=== PATIENT | female | born 1975 | race Caucasian/White ===

== ENCOUNTER 2021-01-09 15:10 | Outpatient (REF) | payer OTHER, SELFPAY ==
[2021-01-09 16:26] LABS: MANUAL DIFF FLAG NO
[2021-01-09 16:31] LABS: Basophils Percent Auto 0.5 % (0-2); Eosinophils Absolute Auto 0.1 X10*3/uL (0.0-0.4); Hematocrit 37.6 % (37-47); Hemoglobin 12.4 g/dl (12.0-16.0); Imm Gran Abs Auto 0.01 X10*3/uL (0.00-0.03); Imm Gran Pct Auto 0.2 % (0.0-0.4); Lymphocytes Absolute Auto 2.1 X10*3/uL (1.2-4.9); Lymphocytes Percent Auto 33.3 % (20-40); Mean Corpuscular Hemoglobin 29.9 pg (27.0-33.0); Mean Corpuscular Volume 90.6 fL (80-98); Mean Platelet Volume 10.9 fL (9.4-12.3); Monocytes Absolute Auto 0.4 X10*3/uL (0.1-1.2); Monocytes Percent Auto 6.3 % (2-11); Neutrophils Absolute Auto 3.7 X10*3/uL (2.0-8.3); Neutrophils Percent Auto 58.7 % (45-73); Platelet Count 276 X10*3/uL (160-400); Red Blood Count 4.15 X10*6/uL (4.20-5.50); Red Cell Distribution Width 12.2 % (11.0-16.0); White Blood Count 6.2 X10*3/uL (4.8-10.8)
[2021-01-09 17:03] LABS: Alanine Aminotransferase 20 U/L (0-31); Albumin Level 4.5 g/dL (3.5-5.0); Alkaline Phosphatase 67 U/L (39-117); Anion Gap 10 (12-20); Aspartate Amino Transferase 19 U/L (5-31); Bilirubin Total 0.6 mg/dL (0.0-1.0); Blood Urea Nitrogen 13 mg/dL (9-16); Calcium 9.7 mg/dL (8.4-10.2); Carbon Dioxide 30 mmol/L (22-29); Chloride 104 mmol/L (96-108); Estimated Glomerular Filt Rate > 60; Glucose Random 79 mg/dL (60-115); Potassium 3.5 mmol/L (3.3-5.1); Sodium 140 mmol/L (135-145); Total Protein 7.5 g/dL (6.5-8.0)
== END 2021-01-09 15:11 | disposition home or self-care (01) ==
LOC: HO.HMGCLDS 15:10
PROVIDERS: PCP Internal Medicine; Visit Provider Internal Medicine
DX: I10 Essential (primary) hypertension (principal); F33.9 Major depressive disorder, recurrent, unspecified; F41.1 Generalized anxiety disorder; G47.9 Sleep disorder, unspecified
CPT/HCPCS: 36415; 80053; 85025

== ENCOUNTER → 2021-02-12 07:58 | Outpatient (BNVA) | payer OTHER, SELFPAY | PROVIDERS: PCP Internal Medicine; Visit Provider Physician Assistant ==

== ENCOUNTER 2021-03-19 14:08 | Day surgery (SDC) | payer OTHER, SELFPAY ==
[2021-03-19] VITALS (7 sets, daily range): BP systolic 128–163; BP diastolic 80–98; PULSE 60–79; RESP 16–18; TEMP 36.3–36.9; O2SAT 97–100; BMI 28.2
--- NOTE | 2021-03-19 14:49 | MHC.SHP ---
Pre-Procedural Eval Section B Chief Complaint: digestive system Relevant Family History (Specify if Yes): No Relevant Social History: Tobacco Use Present Medications: see Short Stay Collaborative assessment Medical History: Significant History (Anxiety, generalized Blood in urine Change in bowel function Depression, major, recurrent Difficulty sleeping Herpes simplex antibody positive Hypertension, essential IBS (irritable bowel syndrome)) History of Previous Operations: Relevant previous surgery/procedure and date(s) (tubal ligation) Allergies: Allergies Allergy/AdvReac Type Severity Reaction Status Date / Time Sulfa (Sulfonamide Allergy Unknown Anaphylaxis Verified 01/09/21 14:41 Antibiotics) /hives [SULFA (SULFONAMIDE ANTIBIOTICS)] Review of Systems Sugical H&P ROS: Negative: Constitution, Cardiovascular, Respiratory, Neurological, Psychiatric, Hem-Onc, Allergic/Immunologic, Gastrointestinal, Genitourinary, Musculoskeletal, Integumentary, Endocrine and Eyes/Ears/Nose/Throat Exam Surgical H&P Exam: Normal: HEENT, Normal: Heart, Normal: Lungs, Normal: Extremities, Normal: Abdomen, Normal: Skin and Normal: Neurological Plan Diagnosis/Plan: Unchanged I have reviewed the history and physical and performed a pertinent physical examination on my patient. No changes have occurred unless specified.
--- NOTE | 2021-03-19 14:51 | PM.OP ---
Brief Operative Note Date of Service: 03/19/21 Pre-op diagnosis: altered bowel habit Post-op diagnosis: same Procedure: see op note Surgeon: Ana María Sifuentes MD Anesthesia: MAC Was an Infantry Senior Sergeant used for this Procedure?: No Estimated blood loss (mL): 0 Condition: stable Disposition: PACU
--- NOTE | 2021-03-19 14:51 | W.PM.OPN ---
Operative Note Operative Note Date of Service: 03/19/21 Narrative: Operative Information Procedure Description: Colonoscopy COLONOSCOPY Instrument: Olympus variable stiffness pediatric scope 190L Colonoscopy Monitoring: Vital signs and clinical assessment, continuous EKG monitoring, Pulse oximetry, Carbon Dioxide monitoring and blood pressure monitoring were done throughout the procedure. Colon withdrawal time was 12 minutes. Procedure: The patient was placed in the left lateral decubitis position and pre-procedure medications were administered. After a digital rectal examination of the ano-rectum, the video colonoscope was inserted into the rectum and advanced through the colon to the cecum/TI. The colonoscope was slowly withdrawn in a retrograde panoramic fashion and the colon mucosa was carefully examined including a retroflexed view of the rectum. Findings and interventions are described below. Procedure Difficulty:easy Findings: Terminal Ileum-normal Cecum:normal Ascending Colon: normal Transverse Colon -normal Descending Colon: 10-12 mm flat polyp with sessile edges, raised with orise and then removed with cold snare Sigmoid Colon: x 2 sessile polyps 5-7 mm removed with forceps Rectum: Retroflexion with small internal hemorrhoids, grade I Anorectum - normal Colon preparation: [place] Bowel Preparation Scale Right colon; 3 Transverse colon: 3 Left colon; 3 (0 = Unprepared colon segment with mucosa not seen due to solid stool that cannot be cleared. 1 = Portion of mucosa of the colon segment seen, but other areas of the colon segment not well seen due to staining, residual stool and/or opaque liquid. 2 = Minor amount of residual staining, small fragments of stool and/or opaque liquid, but mucosa of colon segment seen well. 3 = Entire mucosa of colon segment seen well with no residual staining, small fragments of stool or opaque liquid) Impression and Post Procedure Diagnosis: internal hemorrhoids polyps Plan: High fiber diet leaflet Avoid straining at stool, epsom salts and sitz bath, anusol supps or cream as needed Repeat Colonoscopy in 5 years or earlier if clinically indicated Above findings were reviewed with the patient and relevant handouts were provided if indicated.
== END 2021-03-19 16:43 | disposition home or self-care (01) ==
PROVIDERS: PCP Internal Medicine; Visit Provider Internal Medicine Gastroenterology
PROC: 0DJD8ZZ Inspection of Lower Intestinal Tract, Via Natural or Artificial Opening Endoscopic (ICD-10-PCS; CPT 45378; principal; 2021-03-19 16:20)
DX: R19.4 Change in bowel habit (principal); K63.5 Polyp of colon; K64.0 First degree hemorrhoids; K58.9 Irritable bowel syndrome, unspecified; I10 Essential (primary) hypertension; F32.9 Major depressive disorder, single episode, unspecified; B00.82 Herpes simplex myelitis; F17.210 Nicotine dependence, cigarettes, uncomplicated; Z79.899 Other long term (current) drug therapy; Z88.2 Allergy status to sulfonamides
CPT/HCPCS: 45385; 45380; 45381; 88305

== ENCOUNTER 2022-01-29 07:07 | Outpatient (REF) | payer OTHER, SELFPAY ==
[2022-01-29 11:27] LABS: MANUAL DIFF FLAG NO
[2022-01-29 11:31] LABS: Basophils Percent Auto 0.8 % (0-2); Eosinophils Absolute Auto 0.3 X10*3/uL (0.0-0.4); Eosinophils Percent Auto 5.8 % (0-4); Hematocrit 38.1 % (37.0-47.0); Hemoglobin 12.4 g/dl (12.0-16.0); Imm Gran Abs Auto 0.02 X10*3/uL (0.00-0.03); Imm Gran Pct Auto 0.4 % (0.0-0.4); Lymphocytes Absolute Auto 1.8 X10*3/uL (1.2-4.9); Lymphocytes Percent Auto 34.4 % (20-40); Mean Corpuscular HGB Conc 32.5 g/dl (31.0-35.0); Mean Corpuscular Hemoglobin 29.5 pg (27.0-33.0); Mean Corpuscular Volume 90.5 fL (80.0-98.0); Mean Platelet Volume 11.3 fL (9.4-12.3); Monocytes Absolute Auto 0.4 X10*3/uL (0.1-1.2); Monocytes Percent Auto 6.8 % (2-11); Neutrophils Absolute Auto 2.7 x10*3/uL (2.0-8.3); Neutrophils Percent Auto 51.8 % (45-73); Platelet Count 234 X10*3/uL (160-400); Red Blood Count 4.21 X10*6/uL (4.20-5.50); Red Cell Distribution Width 12.5 % (11.0-16.0); White Blood Count 5.1 X10*3/uL (4.8-10.8)
[2022-01-29 11:57] LABS: Alanine Aminotransferase 21 U/L (0-31); Albumin Level 4.1 g/dL (3.5-5.0); Alkaline Phosphatase 60 U/L (39-117); Anion Gap 12 (12-20); Aspartate Amino Transferase 20 U/L (5-31); Bilirubin Total 0.4 mg/dL (0.0-1.0); Blood Urea Nitrogen 20 mg/dL (9-16); Calcium 10.2 mg/dL (8.4-10.2); Carbon Dioxide 26 mmol/L (22-29); Chloride 106 mmol/L (96-108); Cholesterol 187 mg/dL; Estimated Glomerular Filt Rate > 60; Glucose Fasting 97 mg/dL (60-99); HDL Cholesterol 51 mg/dL; LDL Cholesterol Calculated 121 mg/dl; Potassium 4.2 mmol/L (3.3-5.1); Sodium 140 mmol/L (135-145); Total Protein 7.2 g/dL (6.5-8.0); Triglycerides 78 mg/dL
[2022-01-29 12:03] LABS: TSH reflex Free T4 1.33 uIU/mL (0.32-4.0)
[2022-01-31 09:11] LABS: Follicle Stimulating Hormone 24.5 mIU/mL; Lutenizing Hormone 23.5 mIU/mL
== END 2022-01-29 07:08 | disposition home or self-care (01) ==
LOC: HO.HMGCLDS 07:07
PROVIDERS: Visit Provider Internal Medicine
DX: F33.9 Major depressive disorder, recurrent, unspecified (principal); F41.1 Generalized anxiety disorder; I10 Essential (primary) hypertension; K58.9 Irritable bowel syndrome, unspecified; N93.8 Other specified abnormal uterine and vaginal bleeding; R23.2 Flushing
CPT/HCPCS: 36415; 80053; 80061; 83001; 83002; 84443; 85025

== ENCOUNTER 2022-07-30 14:20 | Outpatient (REF) | payer OTHER, SELFPAY ==
[2022-07-30 16:36] LABS: MANUAL DIFF FLAG NO
[2022-07-30 16:41] LABS: Basophils Percent Auto 0.6 % (0-2); Eosinophils Absolute Auto 0.2 X10*3/uL (0.0-0.4); Eosinophils Percent Auto 3.7 % (0-4); Hematocrit 36.1 % (37.0-47.0); Hemoglobin 12.2 g/dl (12.0-16.0); Imm Gran Abs Auto 0.02 X10*3/uL (0.00-0.03); Imm Gran Pct Auto 0.3 % (0.0-0.4); Lymphocytes Absolute Auto 2.2 X10*3/uL (1.2-4.9); Lymphocytes Percent Auto 35.3 % (20-40); Mean Corpuscular HGB Conc 33.8 g/dl (31.0-35.0); Mean Corpuscular Hemoglobin 30.4 pg (27.0-33.0); Mean Platelet Volume 11.5 fL (9.4-12.3); Monocytes Absolute Auto 0.6 X10*3/uL (0.1-1.2); Monocytes Percent Auto 8.9 % (2-11); Neutrophils Absolute Auto 3.2 x10*3/uL (2.0-8.3); Neutrophils Percent Auto 51.2 % (45-73); Platelet Count 256 X10*3/uL (160-400); Red Blood Count 4.01 X10*6/uL (4.20-5.50); Red Cell Distribution Width 12.7 % (11.0-16.0); White Blood Count 6.2 X10*3/uL (4.8-10.8)
[2022-07-30 16:56] LABS: Alanine Aminotransferase 24 U/L (0-31); Albumin Level 4.3 g/dL (3.5-5.0); Alkaline Phosphatase 64 U/L (39-117); Anion Gap 14 (12-20); Aspartate Amino Transferase 23 U/L (5-31); Bilirubin Total 0.3 mg/dL (0.0-1.0); Blood Urea Nitrogen 17 mg/dL (9-16); Calcium 10.2 mg/dL (8.4-10.2); Carbon Dioxide 26 mmol/L (22-29); Chloride 104 mmol/L (96-108); Estimated Glomerular Filt Rate > 60; Glucose Random 87 mg/dL (60-115); Potassium 4.2 mmol/L (3.3-5.1); Sodium 140 mmol/L (135-145); Total Protein 7.4 g/dL (6.5-8.0)
== END 2022-07-30 14:21 | disposition home or self-care (01) ==
LOC: HO.HMGCLDS 14:20
PROVIDERS: PCP Internal Medicine; Visit Provider Internal Medicine
DX: F33.9 Major depressive disorder, recurrent, unspecified (principal); F41.1 Generalized anxiety disorder; I10 Essential (primary) hypertension; K58.9 Irritable bowel syndrome, unspecified; G47.9 Sleep disorder, unspecified
CPT/HCPCS: 36415; 80053; 85025

== ENCOUNTER 2023-04-22 14:38 | Outpatient (AMB) | payer OTHER, SELFPAY ==
--- NOTE | 2023-04-22 14:41 | A.OFFPC_ITS ---
Vital Signs 04/22/23 14:45 Height 5 ft 6 in Weight 185 lb BMI 29.9 BP 132/90 H Blood Pressure Location Lt brachial Position Sitting Pulse 60 Pulse Source Pulse Oximeter Pulse Oximetry (%) 98 Oxygen Delivery Method Room Air Intake Visit Reasons: Annual PE Allergies Sulfa (Sulfonamide Antibiotics) [SULFA (SULFONAMIDE ANTIBIOTICS)] Allergy (Unknown, Verified 04/22/23 14:43) Anaphylaxis/hives Medication List - Last Reconciled 04/22/23 by Rox Novak MD atenolol 50 mg PO DAILY 90 days bupropion HCl (Wellbutrin XL) 300 mg PO QAM 90 days buspirone 10 mg (2 x 5 mg) PO BID PRN 90 days dicyclomine 10 mg PO TID losartan 50 mg PO DAILY 90 days quetiapine 100 mg PO BEDTIME 90 days venlafaxine ER 37.5 mg PO DAILY 90 days Tobacco use date assessed: 04/22/23 Dental Screening Dental Screen Date: 04/22/23 Did you have a dental visit in the last 12 months?: No Was dental information given to patient?: Yes HPI Annual PE HPI Details Patient is a 47-year-old female came in today for her annual physical exam Due for labs Due for mammogram Due for OBGYN visit Hypertension: Patient's blood pressure stable, she is taking atenolol 50 mg and losartan 50 mg, tolerating medication.? Major depression: Patient is on Seroquel 100 mg at night which also helps her sleep Patient is also on venlafaxine 37.5 mg.? And Wellbutrin 300 mg.? Anxiety is stable with buspirone 10 mg up b.i.d. IBS stable with dicyclomine Follow-up 3 months [facility] Medical History Anxiety, generalized Blood in urine Change in bowel function Depression, major, recurrent Difficulty sleeping Herpes simplex antibody positive Hypertension, essential IBS (irritable bowel syndrome) Surgical History History of tubal ligation Family History Father CAD (coronary artery disease) High cholesterol Mother HTN (hypertension) Depression Paternal Grandfather Cancer of prostate Other Mental health disorder Social History Household Members: Children Housing: Condominium Alcohol intake: current Alcohol intake frequency: a few times a month Patient Tobacco Use Status: Current everyday Tobacco user Tobacco use type: Cigarette Cigarettes Per Day: 3 e-Cigarette/Vaping Use: Never Used service: No Current occupational status: employed Current occupation: [employer] High Cognitive needs: No Hearing needs: No Vision needs: No Questionnaire PHQ-9 Over the last 2 weeks, how often have you been bothered by any of the following problems? 1. Little interest or pleasure in doing things: several days 2. Feeling down, depressed, or hopeless: several days 3. Trouble falling or staying asleep, or sleeping too much: not at all 4. Feeling tired or having little energy: several days 5. Poor appetite or overeating: not at all 6. Feeling bad about yourself - or that you are a failure or have let yourself or your family down: several days 7. Trouble concentrating on things, such as reading the newspaper or watching television: not at all 8. Moving or speaking so slowly that other people could have noticed. Or the opposite - being so fidgety or restless that you have been moving around a lot more than usual: not at all 9. Thoughts that you would be better off or of hurting yourself in some way: not at all Total score: 4 Source: Developed by Drs. Chance Gillespie, Neena Archer, Cuauhtemoc Brambila and colleagues, with an educational ozzie from [employer]. Thrive Questionnaire Date Thrive assessed: 04/22/23 I am a: Patient What is your living situation today?: I have a steady place to live Within the past 12 months, did the food you bought not last and you didn't have the money to get more?: Never true Within the past 12 months, did you worry whether your food would run out before you got money to buy more?: Never true Do you have trouble paying for medicines?: No Do you have trouble getting transportation to medical appointments?: No Do you have trouble paying your heating and electricity bill?: No Do you have trouble taking care of your child, family member or friend?: No Do you have trouble with day-to-day activities such as bathing, preparing meals, shopping, managing finances, etc.?: No Are you currently unemployed and looking for a job?: No Are you interested in more education?: No AUDIT C Alcohol Use Questionnaire (AUDIT-C) 1. How often do you have a drink containing alcohol?: Monthly or less 2. How many drinks containing alcohol do you have on a typical day when you are drinking?: 1 or 2 3. How often do you have six or more drinks on one occasion?: Never Total Score: 1 MARIA DEL CARMEN-7 AMB Questionnaire MARIA DEL CARMEN-7 Date MARIA DEL CARMEN - 7 assessed: 04/22/23 Feeling nervous, anxious, or on edge: 0 = Not at all Not being able to stop or control worryin = Not at all Worrying too much about different things: 0 = Not at all Trouble relaxin = Not at all Being so restless that it is hard to sit still: 0 = Not at all Becoming easily annoyed or irritable: 0 = Not at all Feeling afraid as if something awful might happen: 0 = Not at all Total MARIA DEL CARMEN-7 score (0-4 normal; 5-9 mild; 10-14 moderate; 15-21 severe): 0 Source: Developed by Drs. Chance Gillespie, Neena Archer, Cuauhtemoc Brambila and colleagues, with an educational ozzie from [employer]. Review of Systems Const Denies chills, Denies fever(s) and Denies headache(s) Eyes Denies blurry vision ENT Denies headache(s), Denies nasal discharge, Denies nasal obstruction, Denies odynophagia and Denies sinus pain Card Denies chest pain at rest and Denies chest pain with activity Resp Denies cough and Denies hemoptysis GI Denies odynophagia, Denies vomiting and Denies hematemesis Reports as per HPI Musc Denies abnormal gait Skin/Breast Reports as per HPI Neuro Denies Neuro-related abnormal movements, Denies Abnormal speech present, Denies abnormal gait, Denies headache(s) and Denies Sensory deficit (Neuro) Psych Denies mood swings and Denies paranoia Endo Reports as per HPI Jesse/Lymph Reports as per HPI Aller/Immun Reports as per HPI Physical exam (Primary Care) Vital Signs: Last Vital Signs Pulse 60 04/22/23 14:45 BP 132/90 H 04/22/23 14:45 Pulse Ox 98 04/22/23 14:45 Oxygen Delivery Method Room Air 04/22/23 14:45 BMI result Body Mass Index 29.9 Tobacco/Smoking Status: Tobacco use Status Tobacco use date assessed 04/22/23 04/22/23 14:44 Patient Tobacco Use Status Current everyday Tobacco 04/22/23 14:42 Tobacco use type Cigarette 04/22/23 14:42 e-Cigarette/Vaping Use Never Used 04/22/23 14:42 PHQ-9: PHQ-9 Score PHQ-9: Total score 4 04/22/23 14:48 Thrive Assessment: Date of Thrive Assessment Date Thrive assessed 04/22/23 04/22/23 14:48 Const General: cooperative, comfortable and no acute distress Orientation/consciousness: patient oriented x3 HENMT Head: Yes normocephalic and Yes atraumatic Eyes General: appearance normal, both eyes and all related structures Pupils: Equal, round and reactive pupils present EOM: EOMs intact bilaterally Neck Neck: Yes supple and No lymphadenopathy Thyroid: Thyroid normal Lymphatic: no lymphadenopathy noted Chest Breast/axilla palpation: normal palpation of the breasts Resp Effort & Inspection: normal respiratory effort and able to speak in complete sentences Auscultation: clear to auscultation bilaterally Cardio Heart sounds: S1 normal heart sound present and S2 normal heart sound present GI Palpation (GI): Soft to palpation and nontender Auscultation: normal bowel sounds General: Yes no CVA tenderness Back/Spine/Pelvis Back: no CVA tenderness Skin General skin exam: elasticity normal and turgor normal Neuro General: patient oriented x3 and gait normal Cranial nerves: Yes Equal, round and reactive pupils present Speech: No Abnormal speech present Sensory Exam: No Sensory deficit (Neuro) Coordination: tandem gait normal and Romberg test negative Extrem General: Yes normal exam except as noted and No edema Assessment and Plan Assessment & Plan (1) Encounter for general adult medical examination with abnormal findings: Code(s): Z00.01 - Encounter for general adult medical examination with abnormal findings (2) Depression, major, recurrent: Code(s): F33.9 - Major depressive disorder, recurrent, unspecified (3) Anxiety, generalized: Code(s): F41.1 - Generalized anxiety disorder (4) Hypertension, essential: Code(s): I10 - Essential (primary) hypertension (5) Difficulty sleeping: Code(s): G47.9 - Sleep disorder, unspecified (6) IBS (irritable bowel syndrome): Comment: FODMAP-and reduce anxiety Dicyclomine 10 mg may increase to t.i.d. Food diary Code(s): K58.9 - Irritable bowel syndrome without diarrhea Plan Patient is a 47-year-old female came in today for her annual physical exam Due for labs Due for mammogram Due for OBGYN visit Hypertension: Patient's blood pressure stable, she is taking atenolol 50 mg and losartan 50 mg, tolerating medication.? Major depression: Patient is on Seroquel 100 mg at night which also helps her sleep Patient is also on venlafaxine 37.5 mg.? And Wellbutrin 300 mg.? Anxiety is stable with buspirone 10 mg up b.i.d. IBS stable with dicyclomine Follow-up 3 months Orders: Orders Comprehensive Met. Panel Today F33.9 - Major depressive disorder, recurrent, unspecified, F41.1 - Generalized anxiety disorder, G47.9 - Sleep disorder, unspecified, I10 - Essential (primary) hypertension, Z00.01 - Encounter for general adult medical examination with abnormal findings Complete Blood Count Auto Diff Today F33.9 - Major depressive disorder, recurrent, unspecified, F41.1 - Generalized anxiety disorder, G47.9 - Sleep disorder, unspecified, I10 - Essential (primary) hypertension, Z00.01 - Encounter for general adult medical examination with abnormal findings MM tomosynthesis screening BI Today Z12.31 - Encounter for screening mammogram for malignant neoplasm of breast 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
[2023-04-22 14:45] VITALS: BP 132/90; PULSE 60; O2SAT 98; BMI 29.9
== END 2023-04-22 15:08 | disposition home or self-care (01) ==
PROVIDERS: Visit Provider Internal Medicine
DX: Z00.01 Encounter for general adult medical examination with abnormal findings (principal); F33.9 Major depressive disorder, recurrent, unspecified; I10 Essential (primary) hypertension; K58.9 Irritable bowel syndrome, unspecified; F41.1 Generalized anxiety disorder; G47.9 Sleep disorder, unspecified
CPT/HCPCS: 99396

== ENCOUNTER 2023-05-09 09:24 | Outpatient (AMB) | payer OTHER, SELFPAY ==
--- NOTE | 2023-05-09 09:25 | MHC.OFFWIV ---
Intake Vital Signs 05/09/23 09:29 BP 130/96 H Blood Pressure Location Lt brachial Position Sitting Pulse 88 Pulse Source Pulse Oximeter Temp 97.2 F Temp Source Temporal Artery Scan Pulse Oximetry (%) 98 Oxygen Delivery Method Room Air Intake Visit Reasons: EP, Right eye redness, swelling Intake Note: Patient here for right eye redness and swelling that has been present since Tuesday, she has been having discharge since then. Patient Tobacco Use Status: Current everyday Tobacco user Allergies Sulfa (Sulfonamide Antibiotics) [SULFA (SULFONAMIDE ANTIBIOTICS)] Allergy (Unknown, Verified 05/09/23 09:53) Anaphylaxis/hives Medication List - Last Reconciled 05/09/23 by Vega Morales MD atenolol 50 mg PO DAILY 90 days azithromycin take 500 mg today (day 1), then 250 mg for 4 days (days 2-5) PO bupropion HCl (Wellbutrin XL) 300 mg PO QAM 90 days buspirone 10 mg (2 x 5 mg) PO BID PRN 90 days dicyclomine 10 mg PO TID erythromycin 0.5 inches ophthalmic (eye) TID losartan 50 mg PO DAILY 90 days quetiapine 100 mg PO BEDTIME 90 days venlafaxine ER 37.5 mg PO DAILY 90 days Do you need a note to return to daycare/school/sports/work: Yes HPI EP, Right eye redness, swelling HPI Details 47-year-old female presents to the office for a sick visit. Patient is reporting symptoms of right ear pain and sore throat for the past few days. In addition she woke up with right eye pain. Increased tearing. Does not wear contact lenses. Mucoid discharge in the morning. [facility] Medical History Anxiety, generalized Blood in urine Change in bowel function Depression, major, recurrent Difficulty sleeping Herpes simplex antibody positive Hypertension, essential IBS (irritable bowel syndrome) Surgical History History of tubal ligation Family History Father CAD (coronary artery disease) High cholesterol Mother HTN (hypertension) Depression Paternal Grandfather Cancer of prostate Other Mental health disorder Social History Household Members: Children Housing: Condominium Alcohol intake: current Alcohol intake frequency: a few times a month Patient Tobacco Use Status: Current everyday Tobacco user Tobacco use type: Cigarette Cigarettes Per Day: 3 e-Cigarette/Vaping Use: Never Used service: No Current occupational status: employed Current occupation: [employer] High Cognitive needs: No Hearing needs: No Vision needs: No Physical Exam Vital Signs: Last Vital Signs Temp 97.2 F 05/09/23 09:29 Pulse 88 05/09/23 09:29 BP 130/96 H 05/09/23 09:29 Pulse Ox 98 05/09/23 09:29 Oxygen Delivery Method Room Air 05/09/23 09:29 Const General: cooperative and healthy appearing Nutritional Appearance: well nourished Orientation/consciousness: patient oriented x3 Limitations: no limitations HEENT Head: Yes normal to inspection Eyes Other: Right eye: Tearing, bulbar conjunctiva is congested. Corneas clear. No digital tenderness. General: appearance normal, both eyes and all related structures Neck Neck: Yes normal visual inspection Chest Chest palpation & inspection: normal palpation of entire chest wall Resp Effort & Inspection: normal respiratory effort Neuro General: patient oriented x3 Assessment & Plan Assessment & Plan (1) Conjunctivitis: Code(s): H10.9 - Unspecified conjunctivitis Plan: Erythromycins ointment called in. If symptoms do not improve to follow-up here. (2) Upper respiratory tract infection: Code(s): J06.9 - Acute upper respiratory infection, unspecified Plan: Antibiotics ordered. Increase fluid intake. Tylenol for aches and pains. If symptoms worsen, follow-up here for a recheck. Medications: New azithromycin take 500 mg today (day 1), then 250 mg for 4 days (days 2-5) PO 6 tabs 0RF erythromycin 0.5 inches ophthalmic (eye) TID 1 g 0RF Coding Level of Care Code Est Pt Level 4 (44868) Diagnoses Conjunctivitis H10.9 Upper respiratory tract infection J06.9
[2023-05-09 09:29] VITALS: BP 130/96; PULSE 88; TEMP 36.2; O2SAT 98
== END 2023-05-09 09:57 | disposition home or self-care (01) ==
PROVIDERS: PCP Internal Medicine; Visit Provider Internal Medicine
DX: H10.9 Unspecified conjunctivitis (principal); J06.9 Acute upper respiratory infection, unspecified
CPT/HCPCS: 99214

== ENCOUNTER 2023-05-09 10:00 | Outpatient (REF) | payer OTHER, SELFPAY ==
[2023-05-09 13:42] LABS: MANUAL DIFF FLAG NO
[2023-05-09 13:56] LABS: Basophils Percent Auto 0.7 % (0-2); Eosinophils Absolute Auto 0.2 X10*3/uL (0.0-0.4); Eosinophils Percent Auto 2.7 % (0-4); Hematocrit 41.1 % (37.0-47.0); Hemoglobin 13.4 g/dl (12.0-16.0); Imm Gran Abs Auto 0.02 X10*3/uL (0.00-0.03); Imm Gran Pct Auto 0.4 % (0.0-0.4); Lymphocytes Absolute Auto 1.6 X10*3/uL (1.2-4.9); Lymphocytes Percent Auto 28.8 % (20-40); Mean Corpuscular HGB Conc 32.6 g/dl (31.0-35.0); Mean Corpuscular Hemoglobin 29.8 pg (27.0-33.0); Mean Corpuscular Volume 91.3 fL (80.0-98.0); Mean Platelet Volume 11.5 fL (9.4-12.3); Monocytes Absolute Auto 0.4 X10*3/uL (0.1-1.2); Monocytes Percent Auto 7.6 % (2-11); Neutrophils Absolute Auto 3.4 x10*3/uL (2.0-8.3); Neutrophils Percent Auto 59.8 % (45-73); Platelet Count 283 X10*3/uL (160-400); Red Cell Distribution Width 12.2 % (11.0-16.0); White Blood Count 5.6 X10*3/uL (4.8-10.8)
[2023-05-09 14:26] LABS: Alanine Aminotransferase 36 U/L (0-31); Albumin Level 4.1 g/dL (3.5-5.0); Alkaline Phosphatase 79 U/L (39-117); Anion Gap 15 (12-20); Aspartate Amino Transferase 34 U/L (5-31); Bilirubin Total 0.3 mg/dL (0.0-1.0); Blood Urea Nitrogen 11 mg/dL (9-16); Calcium 10.5 mg/dL (8.4-10.2); Carbon Dioxide 25 mmol/L (22-29); Chloride 106 mmol/L (96-108); Estimated Glomerular Filt Rate > 60; Glucose Random 73 mg/dL (60-115); Potassium 3.8 mmol/L (3.3-5.1); Sodium 142 mmol/L (135-145); Total Protein 7.7 g/dL (6.5-8.0)
== END 2023-05-09 10:01 | disposition home or self-care (01) ==
LOC: HO.HMGCLDS 10:00
PROVIDERS: PCP Internal Medicine; Visit Provider Internal Medicine
DX: Z00.01 Encounter for general adult medical examination with abnormal findings (principal); I10 Essential (primary) hypertension; F33.9 Major depressive disorder, recurrent, unspecified; F41.1 Generalized anxiety disorder; G47.9 Sleep disorder, unspecified
CPT/HCPCS: 36415; 80053; 85025

== ENCOUNTER 2023-07-29 08:49 | Outpatient (AMB) | payer OTHER, SELFPAY ==
[2023-07-29 09:19] VITALS: BP 160/98; BMI 29.7
--- NOTE | 2023-07-29 09:19 | MHC.OFFVIS ---
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 Raw Salt Present (Aidyn) Allergies Sulfa (Sulfonamide Antibiotics) [SULFA (SULFONAMIDE ANTIBIOTICS)] Allergy (Unknown, Verified 07/29/23 09:22) Anaphylaxis/hives Medication List - Last Reconciled 07/29/23 by Genesis Stein CNM atenolol 50 mg PO DAILY 90 days azithromycin take 500 mg today (day 1), then 250 mg for 4 days (days 2-5) PO bupropion HCl (Wellbutrin XL) 300 mg PO QAM 90 days buspirone 10 mg (2 x 5 mg) PO BID PRN 90 days dicyclomine 10 mg PO TID erythromycin 0.5 inches ophthalmic (eye) TID losartan 50 mg PO DAILY 90 days quetiapine 100 mg PO BEDTIME 90 days venlafaxine ER 37.5 mg PO DAILY 90 days Is last menstrual period known: Yes Last menstrual period: 07/22/23 Post menopausal: No HPI New patient Annual HPI Details 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 Maria and he delivered both of her children she had a tubal ligation in the past she had a history of abnormal Paps but every time they would be re checked she says they came back okay and the last 1 was normal in 2014. Previous Paps with ASCUS were found in system. She has been having hot flashes which she manages and she wakes up in the morning having been sweaty but it does not disturb her sleep per se though she does recount periods when she holds her urine for a long time and then has trouble getting to the bathroom she in the past has been evaluated by Urology and says she does not remember what they told her she was able to reproduce a very good strong Kegel and she has no descensus of cervix or you bladder or uterus. Exam completely within normal limits.. She sometimes misses her blood pressure medicine but she is trying to get back to taking it regularly. She sees Dr. Novak for primary care and she has had her mammogram ordered but she had to reschedule and she will be scheduling it. She does find her breast tender before her menses and sometimes after she does struggle with weight. Walks her dogs daily and that is mostly her exercise, she does like walking. She will be seeing Dr. Novak next week and will be following up with her about the blood pressure. I did give her information about physical therapy for pelvic floor therapy but she has such excellent tone that I did not place a referral. she may follow up with Dr. Novak about this as well. [facility] Medical History Anxiety, generalized Blood in urine Change in bowel function Depression, major, recurrent Difficulty sleeping Herpes simplex antibody positive Hypertension, essential IBS (irritable bowel syndrome) Surgical History History of tubal ligation Family History Father CAD (coronary artery disease) High cholesterol Mother HTN (hypertension) Depression Paternal Grandfather Cancer of prostate Other Mental health disorder Social History Household Members: Children Housing: Condominium Alcohol intake: current Alcohol intake frequency: a few times a month Patient Tobacco Use Status: Current everyday Tobacco user Tobacco use type: Cigarette Cigarettes Per Day: 3 e-Cigarette/Vaping Use: Never Used service: No Current occupational status: employed Current occupation: [employer] High Cognitive needs: No Hearing needs: No Vision needs: No Female Reproductive History Menstrual Age of Menarche: 10 Duration of menses: 3-5 days Date of last menstrual period: 07/22/23 control method: other (tubal ligation) Total pregnancies: 2 Full term: 2 Number of Living Children: 2 Date of last pap smear: 01/22/15 (negative) History of abnormal pap smear: Yes (ASCUS 2009, LGSIL 2000 1996, CIN1 1999) Physical Exam Vital Signs: Last Vital Signs BP 128/80 07/29/23 09:19 BMI result Body Mass Index 29.7 Const General: healthy appearing, comfortable, no acute distress, well developed and alert Nutritional Appearance: average body habitus Orientation/consciousness: patient oriented x3 Limitations: no limitations HEENT Head: Yes normocephalic Neck Neck: Yes normal visual inspection Chest Chest palpation & inspection: normal inspection of the chest Breast/axilla inspection: normal inspection of the breasts and normal inspection of the axillae Breast/axilla palpation: normal palpation of the breasts and normal palpation of the axillae Resp Effort & Inspection: normal respiratory effort GI Inspection: Yes normal to inspection, No Abdominal wall edema and No distended Palpation (GI): Soft to palpation and nontender Other: Vagina pink and moist external exam completely within normal limits. Cervix pink smooth multiparous with normal clear to white discharge scant. Uterus small anteverted mobile nontender excellent tone with Kegel. General: Yes bladder normal to palpation External Female Exam: normal external appearance and normal appearance of the urethra Speculum Exam - Vagina: normal appearance of the vagina, normal palpation and normal vaginal discharge Speculum Exam - Cervix: normal appearance of the cervix, normal palpation and nontender Bimanual exam- vagina & uterus: normal bimanual exam, normal palpation, uterine size normal, bladder normal to palpation, consistency normal, normal palpation, uterine mobility normal, uterine shape normal, No Cervical tenderness present, non-tender and no cervical motion tenderness Bimanual Exam- Adnexa, other: normal adnexae, no masses, normal and No adnexal tenderness Neuro General: patient oriented x3 Assessment & Plan Assessment & Plan (1) Encounter for routine gynecological examination: Code(s): Z01.419 - Encounter for gynecological examination (general) (routine) without abnormal findings (2) Cervical cancer screening: Code(s): Z12.4 - Encounter for screening for malignant neoplasm of cervix (3) Hx of abnormal cervical Pap smear: Code(s): Z87.42 - Personal history of other diseases of the female genital tract (4) Uncontrolled hypertension: Code(s): I10 - Essential (primary) hypertension (5) Perimenopause: Code(s): N95.1 - Menopausal and female climacteric states (6) Breast cancer screening: Comment: Exam within normal limits will be scheduling her mammogram soon. 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 Maria and he delivered both of her children she had a tubal ligation in the past she had a history of abnormal Paps but every time they would be re checked she says they came back okay and the last 1 was normal in 2015. Previous Paps with ASCUS were found in system. She has been having hot flashes which she manages and she wakes up in the morning having been sweaty but it does not disturb her sleep per se though she does recount periods when she holds her urine for a long time and then has trouble getting to the bathroom she in the past has been evaluated by Urology and says she does not remember what they told her she was able to reproduce a very good strong Kegel and she has no descensus of cervix or you bladder or uterus. Exam completely within normal limits.. She sometimes misses her blood pressure medicine but she is trying to get back to taking it regularly. She sees Dr. Novak for primary care and she has had her mammogram ordered but she had to reschedule and she will be scheduling it. She does find her breast tender before her menses and sometimes after she does struggle with weight. Walks her dogs daily and that is mostly her exercise, she does like walking. She will be seeing Dr. Novak next week and will be following up with her about the blood pressure. I did give her information about physical therapy for pelvic floor therapy but she has such excellent tone that I did not place a referral. she may follow up with Dr. Novak about this as well. Orders: Orders Bacterial Vaginosis Panel Today Z20.2 - Contact with and (suspected) exposure to infections with a predominantly sexual mode of transmission CT NG by PCR Today Z20.2 - Contact with and (suspected) exposure to infections with a predominantly sexual mode of transmission Pap Smear Today Z12.4 - Encounter for screening for malignant neoplasm of cervix Coding Level of Care Code New Pt Prev Care 40-64y(88780) Diagnoses Encounter for routine gynecological examination Z01.419 Cervical cancer screening Z12.4 Hx of abnormal cervical Pap smear Z87.42 Uncontrolled hypertension I10 Perimenopause N95.1 Breast cancer screening Z12.39
== END 2023-07-29 10:01 | disposition home or self-care (01) ==
PROVIDERS: PCP Internal Medicine; Visit Provider Advanced Practice Midwife
DX: Z01.419 Encounter for gynecological examination (general) (routine) without abnormal findings (principal); Z12.4 Encounter for screening for malignant neoplasm of cervix; Z87.42 Personal history of other diseases of the female genital tract; I10 Essential (primary) hypertension; N95.1 Menopausal and female climacteric states; Z12.39 Encounter for other screening for malignant neoplasm of breast
CPT/HCPCS: 99386

== ENCOUNTER 2023-07-29 08:49 | Outpatient (REF) | payer OTHER, SELFPAY ==
[2023-07-29 15:29] LABS: CT PCR NOT DETECTED (Not Detect.); NG PCR NOT DETECTED (Not Detect.)
[2023-07-30 11:57] LABS: BV Int Neg Control Negative (Negative); BV Int Pos Control Positive (Positive)
[2023-08-03 20:37] LABS: HPV mRNA E6/E7 rflx Not Detected (Not Detected)
== END 2023-07-29 08:50 | disposition home or self-care (01) ==
LOC: HO.LNP 08:49
PROVIDERS: PCP Internal Medicine; Visit Provider Advanced Practice Midwife
DX: Z01.419 Encounter for gynecological examination (general) (routine) without abnormal findings (principal); Z11.51 Encounter for screening for human papillomavirus (HPV); Z20.2 Contact with and (suspected) exposure to infections with a predominantly sexual mode of transmission; N95.1 Menopausal and female climacteric states
CPT/HCPCS: 0353U; 87480; 87510; 87624; 87660; 88142

== ENCOUNTER 2023-08-03 14:40 | Outpatient (AMB) | payer OTHER, SELFPAY ==
[2023-08-03 14:42] VITALS: BP 160/94; PULSE 79; O2SAT 96; BMI 29.7
--- NOTE | 2023-08-03 14:42 | A.OFFPC_ITS ---
Vital Signs 08/03/23 14:42 Height 5 ft 6 in Weight 184 lb 4 oz BMI 29.7 BP 160/94 H Blood Pressure Location Rt brachial Position Sitting Pulse 79 Pulse Source Pulse Oximeter Pulse Oximetry (%) 96 Oxygen Delivery Method Room Air Intake Visit Reasons: 3m follow up Allergies Sulfa (Sulfonamide Antibiotics) [SULFA (SULFONAMIDE ANTIBIOTICS)] Allergy (Unknown, Verified 08/03/23 14:42) Anaphylaxis/hives Medication List - Last Reconciled 08/03/23 by Rox Novak MD atenolol 50 mg PO DAILY 90 days bupropion HCl (Wellbutrin XL) 300 mg PO QAM 90 days buspirone 10 mg (2 x 5 mg) PO BID PRN 90 days dicyclomine 10 mg PO TID losartan 50 mg PO DAILY 90 days quetiapine 100 mg PO BEDTIME 90 days venlafaxine ER 37.5 mg PO DAILY 90 days Tobacco use date assessed: 08/03/23 Dental Screening Dental Screen Date: 08/03/23 Did you have a dental visit in the last 12 months?: No Did you have a dental problem in the last 6 months where you did not have access to dental care?: No Was dental information given to patient?: Patient declined HPI 3m follow up HPI Details Patient is a 47-year-old female came in today for her regular follow-up appointment Patient is having flare up of her hemorrhoids I have sent hydrocortisone suppositories for her She has IBS diarrhea prominent there is no bleeding in stools. Her blood pressure continued to be elevated She is taking venlafaxine for depression I am stopping that and starting her on Lexapro instead. Meanwhile she will double the dose of atenolol to 50 mg b.i.d. and continue losartan 50 mg Major depression with difficulty sleeping: Patient is on Seroquel 100 mg at night which also helps her sleep Continue Wellbutrin 300 mg.? Anxiety is stable with buspirone 10 mg up b.i.d. IBS stable with dicyclomine Follow-up 2 weeks for blood pressure and depression and 3 months for regular follow-up [facility], [facility] Medical History Change in bowel function Blood in urine IBS (irritable bowel syndrome) Herpes simplex antibody positive Difficulty sleeping Hypertension, essential Anxiety, generalized Depression, major, recurrent Surgical History History of tubal ligation Family History Father CAD (coronary artery disease) High cholesterol Mother HTN (hypertension) Depression Paternal Grandfather Cancer of prostate Other Mental health disorder Social History Household Members: Children [facility] Alcohol intake: current Alcohol intake frequency: a few times a month Patient Tobacco Use Status: Current everyday Tobacco user Tobacco use type: Cigarette Cigarettes Per Day: 3 e-Cigarette/Vaping Use: Never Used service: No Current occupational status: employed Current occupation: [employer] High Cognitive needs: No Hearing needs: No Vision needs: No Female Reproductive History Menstrual Age of Menarche: 10 Questionnaire PHQ-9 Over the last 2 weeks, how often have you been bothered by any of the following problems? 1. Little interest or pleasure in doing things: not at all 2. Feeling down, depressed, or hopeless: not at all 3. Trouble falling or staying asleep, or sleeping too much: not at all 4. Feeling tired or having little energy: several days 5. Poor appetite or overeating: not at all 6. Feeling bad about yourself - or that you are a failure or have let yourself or your family down: several days 7. Trouble concentrating on things, such as reading the newspaper or watching television: not at all 8. Moving or speaking so slowly that other people could have noticed. Or the opposite - being so fidgety or restless that you have been moving around a lot more than usual: not at all 9. Thoughts that you would be better off or of hurting yourself in some way: not at all Total score: 2 Depression Screening Interpretation: Negative Depression Screening Done: Yes [id number] - PHQ-9 Billing: Yes Source: Developed by Drs. Chance Gillespie, Neena Archer, Cuauhtemoc Brambila and colleagues, with an educational ozzie from [employer]. Thrive Questionnaire Date Thrive assessed: 08/03/23 I am a: Patient What is your living situation today?: I have a steady place to live Within the past 12 months, did the food you bought not last and you didn't have the money to get more?: Never true Within the past 12 months, did you worry whether your food would run out before you got money to buy more?: Never true Do you have trouble paying for medicines?: No Do you have trouble getting transportation to medical appointments?: No Do you have trouble paying your heating and electricity bill?: No Do you have trouble taking care of your child, family member or friend?: No Do you have trouble with day-to-day activities such as bathing, preparing meals, shopping, managing finances, etc.?: No Are you currently unemployed and looking for a job?: No Are you interested in more education?: No AUDIT C Alcohol Use Questionnaire (AUDIT-C) 1. How often do you have a drink containing alcohol?: Monthly or less 2. How many drinks containing alcohol do you have on a typical day when you are drinking?: 1 or 2 Total Score: 1 Score Reviewed/Action Taken: Yes MARIA DEL CARMEN-7 AMB Questionnaire MARIA DEL CARMEN-7 Date MARIA DEL CARMEN - 7 assessed: 08/03/23 Feeling nervous, anxious, or on edge: 0 = Not at all Not being able to stop or control worryin = Not at all Worrying too much about different things: 0 = Not at all Trouble relaxin = Not at all Being so restless that it is hard to sit still: 0 = Not at all Becoming easily annoyed or irritable: 0 = Not at all Feeling afraid as if something awful might happen: 0 = Not at all Total MARIA DEL CARMEN-7 score (0-4 normal; 5-9 mild; 10-14 moderate; 15-21 severe): 0 Source: Developed by Drs. Chance Gillespie, Neena Archer, Cuauhtemoc Brambila and colleagues, with an educational ozzie from [employer]. MARIA DEL CARMEN-7 Assessment Billing MARIA DEL CARMEN-7 Assessment Tool: MARIA DEL CARMEN-7 Assessment 45067 Review of Systems Const Denies chills and Denies fever(s) ENT Denies epistaxis and Denies nasal discharge Card Denies chest pain Resp Denies chest congestion, Denies cough and Denies hemoptysis GI Denies nausea Skin/Breast Denies rash Neuro Reports no additional complaints Psych Reports no additional complaints Endo Reports no additional complaints Physical exam (Primary Care) Vital Signs: Last Vital Signs Pulse 79 10/25/23 14:42 BP 160/94 H 08/03/23 14:42 Pulse Ox 96 08/03/23 14:42 Oxygen Delivery Method Room Air 08/03/23 14:42 BMI result Body Mass Index 29.7 Tobacco/Smoking Status: Tobacco use Status Tobacco use date assessed 08/03/23 08/03/23 14:46 Patient Tobacco Use Status Current everyday Tobacco 08/03/23 14:46 Tobacco use type Cigarette 08/03/23 14:46 e-Cigarette/Vaping Use Never Used 08/03/23 14:46 PHQ-9: PHQ-9 Score PHQ-9: Total score 2 08/03/23 15:02 Depression Screening Interpretation: Negative Thrive Assessment: Date of Thrive Assessment Date Thrive assessed 08/03/23 08/03/23 15:02 Const General: cooperative, comfortable and no acute distress Orientation/consciousness: patient oriented x3 HENMT Head: Yes normocephalic Eyes Other: Conjunctiva injected bilateral, pupils equally reactive to light, no pain with palpation no photophobia Neck Neck: Yes supple Resp Effort & Inspection: normal respiratory effort, no cough and no stridor Cardio Rhythm: regular rhythm Heart sounds: S1 normal heart sound present and S2 normal heart sound present Skin General skin exam: turgor normal Neuro General: patient oriented x3, tone normal and moves all extremities Extrem Right lower extremity: no edema Left lower extremity: no edema Assessment and Plan Assessment & Plan (1) Hypertension, essential: Code(s): I10 - Essential (primary) hypertension (2) Depression, major, recurrent: Code(s): F33.9 - Major depressive disorder, recurrent, unspecified Qualifiers: Active/Remission status: in partial remission Qualified Code(s): F33.41 - Major depressive disorder, recurrent, in partial remission (3) Anxiety, generalized: Code(s): F41.1 - Generalized anxiety disorder (4) Difficulty sleeping: Code(s): G47.9 - Sleep disorder, unspecified (5) IBS (irritable bowel syndrome): Comment: FODMAP-and reduce anxiety Dicyclomine 10 mg may increase to t.i.d. Food diary Code(s): K58.9 - Irritable bowel syndrome without diarrhea Qualifiers: Irritable bowel syndrome type: with both diarrhea and constipation Qualified Code(s): K58.2 - Mixed irritable bowel syndrome (6) Hemorrhoids: Code(s): K64.9 - Unspecified hemorrhoids Qualifiers: Hemorrhoid type: first degree Qualified Code(s): K64.0 - First degree hemorrhoids (7) Overweight (BMI 25.0-29.9): Code(s): E66.3 - Overweight (8) Acute conjunctivitis, bilateral: Code(s): H10.33 - Unspecified acute conjunctivitis, bilateral Qualifiers: Acute conjunctivitis type: unspecified Qualified Code(s): H10.33 - Unspecified acute conjunctivitis, bilateral Plan Patient is a 47-year-old female came in today for her regular follow-up appointment 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 On examination it seems as if patient have developed conjunctivitis both eyes, I have sent Cipro eyedrops for the patient Patient is having flare up of her hemorrhoids I have sent hydrocortisone suppositories for her She has IBS diarrhea prominent there is no bleeding in stools. Her blood pressure continued to be elevated She is taking venlafaxine for depression I am stopping that and starting her on Lexapro instead. Meanwhile she will double the dose of atenolol to 50 mg b.i.d. and continue losartan 50 mg Major depression with difficulty sleeping: Patient is on Seroquel 100 mg at night which also helps her sleep Continue Wellbutrin 300 mg.? Anxiety is stable with buspirone 10 mg up b.i.d. IBS stable with dicyclomine BMI is elevated at 29.7 patient is overweight need to lose weight Follow-up 2 weeks for blood pressure and depression hand conjunctivitis, 3 months for regular follow-up Medications: New escitalopram oxalate 10 mg PO DAILY 90 days 90 tabs 0RF ciprofloxacin HCl 0.3% one drop in effected eye 6 hours a part for 5 days 5 mL 0RF hydrocortisone acetate 25 mg RI BID 6 days 12 ea 0RF K64.4 - Residual hemorrhoidal skin tags Changed From atenolol 50 mg PO DAILY 90 days 90 tabs 1RF To atenolol 50 mg PO BID 90 days 180 tabs 1RF Discontinued venlafaxine ER Discontinued Reason: Doctor's Order 37.5 mg PO DAILY 90 days 90 caps 0RF Coding Level of Care Code Est Pt Level 4 (01664) Diagnoses Hypertension, essential I10 Recurrent major depressive disorder, in partial remission F33.41 Active/Remission status: in partial remission Anxiety, generalized F41.1 Difficulty sleeping G47.9 Irritable bowel syndrome with both constipation and diarrhea K58.2 Irritable bowel syndrome type: with both diarrhea and constipation Grade I hemorrhoids K64.0 Hemorrhoid type: first degree Overweight (BMI 25.0-29.9) E66.3 Acute conjunctivitis of both eyes, unspecified acute conjunctivitis type H10.33 Acute conjunctivitis type: unspecified Additional Codes MARIA DEL CARMEN-7 Assessment Billing - MARIA DEL CARMEN-7 Assessment Tool: MARIA DEL CARMEN-7 Assessment [id number] ([id number])
== END 2023-08-03 15:43 | disposition home or self-care (01) ==
PROVIDERS: PCP Internal Medicine; Visit Provider Internal Medicine
DX: I10 Essential (primary) hypertension (principal); F33.41 Major depressive disorder, recurrent, in partial remission; F41.1 Generalized anxiety disorder; G47.9 Sleep disorder, unspecified; K58.2 Mixed irritable bowel syndrome; K64.0 First degree hemorrhoids; E66.3 Overweight; H10.33 Unspecified acute conjunctivitis, bilateral
CPT/HCPCS: 99214

== ENCOUNTER 2023-10-26 15:20 | Outpatient (AMB) | payer OTHER, SELFPAY ==
[2023-10-26 15:22] VITALS: BP 130/82; PULSE 50; O2SAT 98; BMI 28.5
--- NOTE | 2023-10-26 15:22 | MHC.PC.OV ---
Vital Signs 10/26/23 15:22 Height 5 ft 6 in Weight 176 lb 8 oz BMI 28.5 BP 130/82 Blood Pressure Location Rt brachial Position Sitting Pulse 50 Pulse Source Pulse Oximeter Pulse Oximetry (%) 98 Oxygen Delivery Method Room Air Intake Visit Reasons: 6m follow up Allergies Sulfa (Sulfonamide Antibiotics) [SULFA (SULFONAMIDE ANTIBIOTICS)] Allergy (Unknown, Verified 10/26/23 15:23) Anaphylaxis/hives Medication List - Last Reconciled 10/26/23 by Rox Novak MD atenolol 50 mg PO BID 90 days bupropion HCl (Wellbutrin XL) 300 mg PO QAM 90 days buspirone 10 mg (2 x 5 mg) PO BID PRN 90 days escitalopram oxalate 10 mg PO DAILY 90 days losartan 50 mg PO DAILY 90 days quetiapine 100 mg PO BEDTIME 90 days Tobacco use date assessed: 10/26/23 Dental Screening Dental Screen Date: 10/26/23 Did you have a dental visit in the last 12 months?: No Did you have a dental problem in the last 6 months where you did not have access to dental care?: No Was dental information given to patient?: No HPI 6m follow up HPI Details Patient is a 47-year-old female came in today for her regular follow-up appointment Hemorrhoids were stable She has IBS diarrhea prominent there is no bleeding in stools. Continued dicyclomine as needed Her blood pressure stable as well patient is taking blood pressure medications regularly, she is taking atenolol 50 mg b.i.d. 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 I have sent 30 tablets of lorazepam 0.5 mg patient was instructed to take only half a tablet over the weekend to see how she feels. If half a tablet is good dose for her continue that otherwise she may take full tablet before breakfast as needed, she is already on buspirone 10 mg b.i.d. as needed Major depression with difficulty sleeping: Patient is on Seroquel 100 mg at night which also helps her sleep Continue Wellbutrin 300 mg.? Labs are due, order placed patient notified Follow-up 3 months [facility] Medical History Change in bowel function Blood in urine IBS (irritable bowel syndrome) Herpes simplex antibody positive Difficulty sleeping Hypertension, essential Anxiety, generalized Depression, major, recurrent Surgical History History of tubal ligation Family History Father CAD (coronary artery disease) High cholesterol Mother HTN (hypertension) Depression Paternal Grandfather Cancer of prostate Other Mental health disorder Social History [facility]hold Members: Children [facility] Alcohol intake: current Alcohol intake frequency: a few times a month Patient Tobacco Use Status: Current everyday Tobacco user Tobacco use type: Cigarette Cigarettes Per Day: 3 e-Cigarette/Vaping Use: Never Used service: No Current occupational status: employed Current occupation: [employer] High Cognitive needs: No Hearing needs: No Vision needs: No Female Reproductive History Menstrual Age of Menarche: 10 Questionnaire Thrive Questionnaire Date Thrive assessed: 08/03/23 AUDIT C Alcohol Use Questionnaire (AUDIT-C) 1. How often do you have a drink containing alcohol?: Monthly or less 2. How many drinks containing alcohol do you have on a typical day when you are drinking?: 1 or 2 3. How often do you have six or more drinks on one occasion?: Never Total Score: 1 Score Reviewed/Action Taken: Yes MARIA DEL CARMEN-7 AMB Questionnaire MARIA DEL CARMEN-7 Date MARIA DEL CARMEN - 7 assessed: 08/03/23 Source: Developed by Drs. Chance Gillespie, Neena Archer, Cuauhtemoc Brambila and colleagues, with an educational ozzie from [employer]. Review of Systems Const Denies chills and Denies fever(s) ENT Denies epistaxis and Denies nasal discharge Card Denies chest pain Resp Denies chest congestion, Denies cough and Denies hemoptysis GI Denies diarrhea and Denies nausea Skin/Breast Denies rash Neuro Reports no additional complaints Psych Reports no additional complaints Endo Reports no additional complaints Physical exam (Primary Care) Vital Signs: Last Vital Signs Pulse 50 10/26/23 15:22 BP 130/82 10/26/23 15:22 Pulse Ox 98 10/26/23 15:22 Oxygen Delivery Method Room Air 10/26/23 15:22 BMI result Body Mass Index 28.5 Tobacco/Smoking Status: Tobacco use Status Tobacco use date assessed 10/26/23 10/26/23 15:28 Patient Tobacco Use Status Current everyday Tobacco 10/26/23 15:28 Tobacco use type Cigarette 10/26/23 15:28 e-Cigarette/Vaping Use Never Used 10/26/23 15:28 Thrive Assessment: Date of Thrive Assessment Date Thrive assessed 08/03/23 10/26/23 15:28 Const General: cooperative, comfortable and no acute distress Orientation/consciousness: patient oriented x3 HENMT Head: Yes normocephalic Eyes General: appearance normal, both eyes and all related structures Neck Neck: Yes supple Resp Effort & Inspection: normal respiratory effort, no cough and no stridor Cardio Rhythm: regular rhythm Heart sounds: S1 normal heart sound present and S2 normal heart sound present Skin General skin exam: turgor normal Neuro General: patient oriented x3, tone normal and moves all extremities Extrem Right lower extremity: no edema Left lower extremity: no edema Assessment and Plan Assessment & Plan (1) Hypertension, essential: Code(s): I10 - Essential (primary) hypertension (2) Depression, major, recurrent: Code(s): F33.9 - Major depressive disorder, recurrent, unspecified Qualifiers: Active/Remission status: in partial remission Qualified Code(s): F33.41 - Major depressive disorder, recurrent, in partial remission (3) Anxiety, generalized: Code(s): F41.1 - Generalized anxiety disorder (4) Difficulty sleeping: Code(s): G47.9 - Sleep disorder, unspecified (5) IBS (irritable bowel syndrome): Comment: FODMAP-and reduce anxiety Dicyclomine 10 mg may increase to t.i.d. Food diary Code(s): K58.9 - Irritable bowel syndrome without diarrhea Qualifiers: Irritable bowel syndrome type: with both diarrhea and constipation Qualified Code(s): K58.2 - Mixed irritable bowel syndrome (6) Hemorrhoids: Code(s): K64.9 - Unspecified hemorrhoids Qualifiers: Hemorrhoid type: first degree Qualified Code(s): K64.0 - First degree hemorrhoids (7) Overweight (BMI 25.0-29.9): Code(s): E66.3 - Overweight Plan Patient is a 47-year-old female came in today for her regular follow-up appointment Hemorrhoids were stable She has IBS diarrhea prominent there is no bleeding in stools. Continued dicyclomine as needed Her blood pressure stable as well patient is taking blood pressure medications regularly, she is taking atenolol 50 mg b.i.d. 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 I have sent 30 tablets of lorazepam 0.5 mg patient was instructed to take only half a tablet over the weekend to see how she feels. If half a tablet is good dose for her continue that otherwise she may take full tablet before breakfast as needed, she is already on buspirone 10 mg b.i.d. as needed Major depression with difficulty sleeping: Patient is on Seroquel 100 mg at night which also helps her sleep Continue Wellbutrin 300 mg.? Labs are due, order placed patient notified Follow-up 3 months Orders: Orders Comprehensive Met. Panel Today F33.9 - Major depressive disorder, recurrent, unspecified, F41.1 - Generalized anxiety disorder, G47.9 - Sleep disorder, unspecified, I10 - Essential (primary) hypertension, K58.9 - Irritable bowel syndrome without diarrhea, K64.9 - Unspecified hemorrhoids LDL Cholesterol Direct Today F33.9 - Major depressive disorder, recurrent, unspecified, F41.1 - Generalized anxiety disorder, G47.9 - Sleep disorder, unspecified, I10 - Essential (primary) hypertension, K58.9 - Irritable bowel syndrome without diarrhea, K64.9 - Unspecified hemorrhoids Complete Blood Count Auto Diff Today F33.9 - Major depressive disorder, recurrent, unspecified, F41.1 - Generalized anxiety disorder, G47.9 - Sleep disorder, unspecified, I10 - Essential (primary) hypertension, K58.9 - Irritable bowel syndrome without diarrhea, K64.9 - Unspecified hemorrhoids Medications: New lorazepam 0.5 mg PO DAILY PRN 30 tabs 0RF anxiety Coding Level of Care Code Est Pt Level 4 (40816) Diagnoses Hypertension, essential I10 Recurrent major depressive disorder, in partial remission F33.41 Active/Remission status: in partial remission Anxiety, generalized F41.1 Difficulty sleeping G47.9 Irritable bowel syndrome with both constipation and diarrhea K58.2 Irritable bowel syndrome type: with both diarrhea and constipation Grade I hemorrhoids K64.0 Hemorrhoid type: first degree Overweight (BMI 25.0-29.9) E66.3
== END 2023-10-26 16:43 | disposition home or self-care (01) ==
PROVIDERS: PCP Internal Medicine; Visit Provider Internal Medicine
DX: I10 Essential (primary) hypertension (principal); F33.41 Major depressive disorder, recurrent, in partial remission; F41.1 Generalized anxiety disorder; G47.9 Sleep disorder, unspecified; K58.2 Mixed irritable bowel syndrome; K64.0 First degree hemorrhoids; E66.3 Overweight
CPT/HCPCS: 99214

== ENCOUNTER 2024-07-27 14:26 | Outpatient (AMB) | payer OTHER, SELFPAY ==
[2024-07-27 14:37] VITALS: BP 132/84; PULSE 81; O2SAT 99; BMI 29.7
--- NOTE | 2024-07-27 14:37 | MHC.PC.OV ---
Vital Signs 07/27/24 14:37 Height 5 ft 6 in Weight 184 lb BMI 29.7 BP 132/84 Blood Pressure Location Rt brachial Position Sitting Pulse 81 Pulse Source Pulse Oximeter Pulse Oximetry (%) 99 Oxygen Delivery Method Room Air Intake Visit Reasons: medication review Allergies Sulfa (Sulfonamide Antibiotics) [SULFA (SULFONAMIDE ANTIBIOTICS)] Allergy (Unknown, Verified 07/27/24 14:37) Anaphylaxis/hives Medication List - Last Reconciled 07/27/24 by Rox Novak MD atenolol 50 mg PO BID 90 days bupropion HCl XL (Wellbutrin XL) 300 mg PO QAM 90 days buspirone 10 mg (2 x 5 mg) PO BID PRN 90 days escitalopram oxalate 10 mg PO DAILY 90 days lorazepam 0.5 mg PO DAILY PRN losartan 50 mg PO DAILY 90 days quetiapine 100 mg PO BEDTIME 90 days Tobacco use date assessed: 07/27/24 Dental Screening Dental Screen Date: 07/27/24 Did you have a dental visit in the last 12 months?: Yes Did you have a dental problem in the last 6 months where you did not have access to dental care?: No Was dental information given to patient?: Patient has dentist HPI medication review HPI Details Patient is a 48-year-old female came in today for her regular follow-up appointment Last time seen was October of this year Patient did not come for follow-up after that Regular appointments were discussed today it is important that patient be seen regularly Hypertension: Patient is taking atenolol 50 mg, losartan 50 mg once a day, blood pressure is stable patient is tolerating medication Anxiety is manageable with Lexapro 10 mg and buspirone 10 mg b.i.d. she also have a script for lorazepam which she is taking only very rarely Major depression with difficulty sleeping: Patient is on Seroquel 100 mg at night which also helps her sleep Continue Wellbutrin 300 mg.? Hemorrhoids and IBS is stable Follow-up 3 months [facility] Medical History Change in bowel function Blood in urine IBS (irritable bowel syndrome) Herpes simplex antibody positive Difficulty sleeping Hypertension, essential Anxiety, generalized Depression, major, recurrent Surgical History History of tubal ligation Family History Father CAD (coronary artery disease) High cholesterol Mother HTN (hypertension) Depression Paternal Grandfather Cancer of prostate Other Mental health disorder Social History Household Members: Children [facility] Alcohol intake: current Alcohol intake frequency: a few times a month Patient Tobacco Use Status: Current everyday Tobacco user Tobacco use type: Cigarette Cigarettes Per Day: 3 e-Cigarette/Vaping Use: Never Used service: No Current occupational status: employed Current occupation: [employer] High Cognitive needs: No Hearing needs: No Vision needs: No Female Reproductive History Menstrual Age of Menarche: 10 Questionnaire PHQ-9 Over the last 2 weeks, how often have you been bothered by any of the following problems? 1. Little interest or pleasure in doing things: more than half the days 2. Feeling down, depressed, or hopeless: more than half the days 3. Trouble falling or staying asleep, or sleeping too much: nearly every day 4. Feeling tired or having little energy: nearly every day 5. Poor appetite or overeating: more than half the days 6. Feeling bad about yourself - or that you are a failure or have let yourself or your family down: more than half the days 7. Trouble concentrating on things, such as reading the newspaper or watching television: several days 8. Moving or speaking so slowly that other people could have noticed. Or the opposite - being so fidgety or restless that you have been moving around a lot more than usual: several days 9. Thoughts that you would be better off or of hurting yourself in some way: several days Total score: 17 Depression Screening Interpretation: Positive Depression Screening Follow-up: Existing condition and In treatment Depression Screening Done: Yes 38464 - PHQ-9 Billing: Yes Source: Developed by Drs. Chance Gillespie, Neena Archer, Cuauhtemoc Brambila and colleagues, with an educational ozzie from [employer]. Thrive Questionnaire Date Thrive assessed: 07/27/24 I am a: Patient What is your living situation today?: I have a steady place to live Within the past 12 months, did the food you bought not last and you didn't have the money to get more?: Sometimes True Within the past 12 months, did you worry whether your food would run out before you got money to buy more?: Sometimes True Do you have trouble paying for medicines?: Yes Do you have trouble getting transportation to medical appointments?: No Do you have trouble paying your heating and electricity bill?: No Do you have trouble taking care of your child, family member or friend?: No Do you have trouble with day-to-day activities such as bathing, preparing meals, shopping, managing finances, etc.?: No Are you currently unemployed and looking for a job?: No Are you interested in more education?: No Please select the resources that you would like help with: None Currently or been in a relationship where the following occur: No concerns reported THRIVE Score: 2 AUDIT C Alcohol Use Questionnaire (AUDIT-C) 1. How often do you have a drink containing alcohol?: Monthly or less 2. How many drinks containing alcohol do you have on a typical day when you are drinking?: 1 or 2 3. How often do you have six or more drinks on one occasion?: Never Total Score: 1 Score Reviewed/Action Taken: Yes MARIA DEL CARMEN-7 AMB Questionnaire MARIA DEL CARMEN-7 Date MARIA DEL CARMEN - 7 assessed: 07/27/24 Feeling nervous, anxious, or on edge: 1 = Several days Not being able to stop or control worryin = Several days Worrying too much about different things: 1 = Several days Trouble relaxin = Several days Being so restless that it is hard to sit still: 1 = Several days Becoming easily annoyed or irritable: 1 = Several days Feeling afraid as if something awful might happen: 0 = Not at all Total MARIA DEL CARMEN-7 score (0-4 normal; 5-9 mild; 10-14 moderate; 15-21 severe): 6 Source: Developed by Drs. Chance Gillespie, Neena Archer, Cuauhtemoc Brambila and colleagues, with an educational ozzie from [employer]. MARIA DEL CARMEN-7 Assessment Billing MARIA DEL CARMEN-7 Assessment Tool: MARIA DEL CARMEN-7 Assessment 88979 Review of Systems Const Denies chills and Denies fever(s) ENT Denies epistaxis and Denies nasal discharge Card Denies chest pain Resp Denies chest congestion, Denies cough and Denies hemoptysis GI Denies diarrhea and Denies nausea Skin/Breast Denies rash Neuro Reports no additional complaints Psych Reports no additional complaints Endo Reports no additional complaints Physical exam (Primary Care) Vital Signs: Last Vital Signs Pulse 81 07/27/24 14:37 BP 132/84 07/27/24 14:37 Pulse Ox 99 07/27/24 14:37 Oxygen Delivery Method Room Air 07/27/24 14:37 BMI result Body Mass Index 29.7 Tobacco/Smoking Status: Tobacco use Status Tobacco use date assessed 07/27/24 07/27/24 14:38 Patient Tobacco Use Status Current everyday Tobacco 07/27/24 14:38 Tobacco use type Cigarette 07/27/24 14:38 e-Cigarette/Vaping Use Never Used 07/27/24 14:38 PHQ-9: PHQ-9 Score PHQ-9: Total score 17 07/27/24 14:38 Depression Screening Interpretation: Positive Depression Screening Follow-up: Existing condition and In treatment Thrive Assessment: Date of Thrive Assessment Date Thrive assessed 07/27/24 07/27/24 14:38 Currently or been in a relationship where the following occur: No concerns reported Const General: cooperative, comfortable and no acute distress Orientation/consciousness: patient oriented x3 HENMT Head: Yes normocephalic Eyes General: appearance normal, both eyes and all related structures Neck Neck: Yes supple Resp Effort & Inspection: normal respiratory effort, no cough and no stridor Cardio Rhythm: regular rhythm Heart sounds: S1 normal heart sound present and S2 normal heart sound present Skin General skin exam: turgor normal Neuro General: patient oriented x3, tone normal and moves all extremities Extrem Right lower extremity: no edema Left lower extremity: no edema Coding Level of Care Code Est Pt Level 4 (54149) Diagnoses Hypertension, essential I10 Anxiety, generalized F41.1 Recurrent major depressive disorder, in partial remission F33.41 Active/Remission status: in partial remission Difficulty sleeping G47.9 Irritable bowel syndrome with both constipation and diarrhea K58.2 Irritable bowel syndrome type: with both diarrhea and constipation Grade I hemorrhoids K64.0 Hemorrhoid type: first degree Itchy eyes H57.9 Additional Codes MARIA DEL CARMEN-7 Assessment Billing - MARIA DEL CARMEN-7 Assessment Tool: MARIA DEL CARMEN-7 Assessment [id number] ([id number]) Assessment & Plan Assessment & Plan (1) Hypertension, essential: Code(s): I10 - Essential (primary) hypertension Category: Medical (2) Anxiety, generalized: Code(s): F41.1 - Generalized anxiety disorder Category: Medical (3) Depression, major, recurrent: Code(s): F33.9 - Major depressive disorder, recurrent, unspecified Category: Medical Qualifiers: Active/Remission status: in partial remission Qualified Code(s): F33.41 - Major depressive disorder, recurrent, in partial remission (4) Difficulty sleeping: Code(s): G47.9 - Sleep disorder, unspecified Category: Medical (5) IBS (irritable bowel syndrome): Comment: FODMAP-and reduce anxiety Dicyclomine 10 mg may increase to t.i.d. Food diary Code(s): K58.9 - Irritable bowel syndrome, unspecified Category: Medical Qualifiers: Irritable bowel syndrome type: with both diarrhea and constipation Qualified Code(s): K58.2 - Mixed irritable bowel syndrome (6) Hemorrhoids: Code(s): K64.9 - Unspecified hemorrhoids Category: Medical Qualifiers: Hemorrhoid type: first degree Qualified Code(s): K64.0 - First degree hemorrhoids (7) Itchy eyes: Code(s): H57.9 - Unspecified disorder of eye and adnexa Category: Medical Plan Patient is a 48-year-old female came in today for her regular follow-up appointment Last time seen was October of this year Patient did not come for follow-up after that Regular appointments were discussed today it is important that patient be seen regularly Hypertension: Patient is taking atenolol 50 mg, losartan 50 mg once a day, blood pressure is stable patient is tolerating medication Anxiety is manageable with Lexapro 10 mg and buspirone 10 mg b.i.d. she also have a script for lorazepam which she is taking only very rarely Major depression with difficulty sleeping: Patient is on Seroquel 100 mg at night which also helps her sleep Continue Wellbutrin 300 mg.? Hemorrhoids and IBS is stable Complaining of itchy watery eyes off on, I have sent eyedrops for the patient she may use that up to 3 times a day Follow-up 3 months Medications: New naphazoline-pheniramine 0.025-0.3 % (Naphcon-A) 1 drp ophthalmic (eye) BID-QID PRN 15 mL 0RF Itchy eyes 30 days
== END 2024-07-27 15:09 | disposition home or self-care (01) ==
PROVIDERS: PCP Internal Medicine; Visit Provider Internal Medicine
DX: I10 Essential (primary) hypertension (principal); F41.1 Generalized anxiety disorder; F33.41 Major depressive disorder, recurrent, in partial remission; G47.9 Sleep disorder, unspecified; K58.2 Mixed irritable bowel syndrome; K64.0 First degree hemorrhoids; H57.9 Unspecified disorder of eye and adnexa

== ENCOUNTER → 2024-07-27 14:26 | Outpatient (BNVA) | payer OTHER, SELFPAY | PROVIDERS: PCP Internal Medicine; Visit Provider Internal Medicine | DX: I10 Essential (primary) hypertension (principal); F41.1 Generalized anxiety disorder; F33.41 Major depressive disorder, recurrent, in partial remission; G47.9 Sleep disorder, unspecified; K58.2 Mixed irritable bowel syndrome; K64.0 First degree hemorrhoids; H57.9 Unspecified disorder of eye and adnexa; Z79.899 Other long term (current) drug therapy | CPT/HCPCS: 96127 ==

== ENCOUNTER 2024-10-31 14:57 | Outpatient (AMB) | payer OTHER, SELFPAY ==
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
[2024-10-31 15:17] VITALS: BP 144/90; PULSE 73; O2SAT 98; BMI 30.2
--- OUTSIDE RECORDS SUMMARY | 2024-10-31 17:26 | XMS_ITS | Clinical Summary ---
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 Name Role Phone Unavailable Primary Care Provider Unavailabl e Social History Tobacco Use Types Packs/Day Years Used Date Smoking Tobacco: Never Assessed Sex and Gender Information Value Date Recorded Sex Assigned at Not on file Gender Identity Not on file Sexual Orientation Not on file Plan of Treatment Health Maintenance Due Date Last Done Comments Breast Cancer Screening 1975 DTaP,Tdap,and Td Vaccines (1 - Tdap) 1994 Hepatitis B Vaccines (1 of 3 - 19+ 3-dose series) 1994 Cervical Cancer Screening: P ap Smear 1996 COVID-19 Vaccine (2023-2 5 season) 2024 Influenza Vaccine (#1) 2024 HIB Vaccines Aged Out No longer eligi ble based on patient's age to complete this topic HPV Vaccines Aged Out No longer eligi ble based on patient's age to complete this topic Hepatitis A Vaccines Aged Out No long er eligible based on patient's age to complete this topic IPV Vaccines Aged Out No longer eligi ble based on patient's age to complete this topic MMR Vaccines Aged Out No longer eligi ble based on patient's age to complete this topic Meningococcal ACWY Vaccine Aged Out N o longer eligible based on patient's age to complete this topic Pneumococcal Vaccine: Pediat rics (0 to 5 Years) and At-Risk Patients (6 to 64 Years) Aged Out No longer eligible b ased on patient's age to complete this topic RSV Immunization Patients Un maricel 20 months Aged Out No longer eligible b ased on patient's age to complete this topic Varicella Vaccines Aged Out No longer eligible based on patient's age to complete this topic
== END 2024-10-31 15:43 | disposition home or self-care (01) ==
PROVIDERS: PCP Internal Medicine; Visit Provider Internal Medicine
DX: Z00.00 Encounter for general adult medical examination without abnormal findings (principal); I10 Essential (primary) hypertension; F33.41 Major depressive disorder, recurrent, in partial remission; F41.1 Generalized anxiety disorder; G47.9 Sleep disorder, unspecified; K64.0 First degree hemorrhoids

== ENCOUNTER → 2024-10-31 14:57 | Outpatient (BNVA) | payer OTHER, SELFPAY | PROVIDERS: PCP Internal Medicine; Visit Provider Internal Medicine | DX: Z00.01 Encounter for general adult medical examination with abnormal findings (principal); F33.41 Major depressive disorder, recurrent, in partial remission; F41.1 Generalized anxiety disorder; I10 Essential (primary) hypertension; G47.9 Sleep disorder, unspecified; K64.0 First degree hemorrhoids; Z79.899 Other long term (current) drug therapy | CPT/HCPCS: 96127 ==

== ENCOUNTER 2024-11-03 08:24 | Outpatient (REF) | payer OTHER, SELFPAY ==
--- OUTSIDE RECORDS SUMMARY | 2024-11-03 08:27 | XMS_ITS | Clinical Summary ---
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
[2024-11-03 11:58] LABS: MANUAL DIFF FLAG NO
[2024-11-03 12:07] LABS: Basophils Percent Auto 0.7 % (0-2); Eosinophils Absolute Auto 0.3 X10*3/uL (0.0-0.4); Eosinophils Percent Auto 5.9 % (0-4); Hematocrit 40.6 % (37.0-47.0); Hemoglobin 13.5 g/dl (12.0-16.0); Imm Gran Abs Auto 0.01 X10*3/uL (0.00-0.03); Imm Gran Pct Auto 0.2 % (0.0-0.4); Lymphocytes Absolute Auto 1.8 X10*3/uL (1.2-4.9); Lymphocytes Percent Auto 41.8 % (20-40); Mean Corpuscular HGB Conc 33.3 g/dl (31.0-35.0); Mean Corpuscular Hemoglobin 30.1 pg (27.0-33.0); Mean Corpuscular Volume 90.4 fL (80.0-98.0); Mean Platelet Volume 11.1 fL (9.4-12.3); Monocytes Absolute Auto 0.3 X10*3/uL (0.1-1.2); Monocytes Percent Auto 6.9 % (2-11); Neutrophils Absolute Auto 1.9 x10*3/uL (2.0-8.3); Neutrophils Percent Auto 44.5 % (45-73); Platelet Count 266 X10*3/uL (160-400); Red Blood Count 4.49 X10*6/uL (4.20-5.50); White Blood Count 4.2 X10*3/uL (4.8-10.8)
[2024-11-03 12:43] LABS: Alanine Aminotransferase 22 U/L (0-31); Albumin Level 4.1 g/dL (3.5-5.0); Alkaline Phosphatase 63 U/L (39-117); Anion Gap 8 (12-20); Aspartate Amino Transferase 27 U/L (5-31); Bilirubin Total 0.4 mg/dL (0.0-1.0); Blood Urea Nitrogen 19 mg/dL (9-16); Carbon Dioxide 26 mmol/L (22-29); Chloride 110 mmol/L (96-108); Cholesterol 168 mg/dL (<200); Estimated Glomerular Filt Rate > 60; Glucose Fasting 81 mg/dL (60-99); HDL Cholesterol 45 mg/dL (>40); LDL Cholesterol Calculated 98 mg/dL (<100); Sodium 140 mmol/L (135-145); TSH reflex Free T4 1.16 uIU/mL (0.32-4.0); Total Protein 7.5 g/dL (6.5-8.0); Triglycerides 126 mg/dL (<150)
== END 2024-11-03 08:25 | disposition home or self-care (01) ==
LOC: HO.HMGCLDS 08:24
PROVIDERS: PCP Internal Medicine; Visit Provider Internal Medicine
DX: Z00.01 Encounter for general adult medical examination with abnormal findings (principal); F33.41 Major depressive disorder, recurrent, in partial remission; F41.1 Generalized anxiety disorder; I10 Essential (primary) hypertension; G47.9 Sleep disorder, unspecified; K64.0 First degree hemorrhoids
CPT/HCPCS: 36415; 80053; 80061; 84443; 85025

== ENCOUNTER → 2024-11-14 11:07 | Outpatient (BNVA) | payer OTHER, SELFPAY | PROVIDERS: PCP Internal Medicine; Visit Provider Internal Medicine | DX: I10 Essential (primary) hypertension (principal); F41.1 Generalized anxiety disorder; F33.41 Major depressive disorder, recurrent, in partial remission | CPT/HCPCS: 96127 ==

== ENCOUNTER → 2025-02-06 14:57 | Outpatient (BNVA) | payer OTHER, SELFPAY | PROVIDERS: PCP Internal Medicine; Visit Provider Internal Medicine | DX: Z13.89 Encounter for screening for other disorder (principal) ==

== ENCOUNTER 2025-04-16 14:51 | Outpatient (AMB) | payer OTHER, SELFPAY ==
[2025-04-16 15:10] VITALS: BP 162/90; PULSE 77; TEMP 37.1; O2SAT 99; BMI 31.0
--- NOTE | 2025-04-16 15:10 | MHC.PC.OV ---
Vital Signs 04/16/25 15:10 04/16/25 15:28 Height 5 ft 6 in Weight 192 lb BMI 31.0 BP 162/90 H 154/100 H Blood Pressure Location Lt brachial Lt brachial Position Sitting Sitting Pulse 77 Pulse Source Pulse Oximeter Temp 98.7 F Temp Source Oral Pulse Oximetry (%) 99 Oxygen Delivery Method Room Air Intake Visit Reasons: 3m follow up Is last menstrual period known: Yes Last menstrual period: 04/12/25 Post menopausal: No Patient : No Allergies Sulfa (Sulfonamide Antibiotics) (SULFA (SULFONAMIDE ANTIBIOTICS)) Allergy (Unknown, Verified 04/16/25 15:17) Anaphylaxis/hives Medication List - Last Reconciled 04/16/25 by Rox Novak MD atenolol 50 mg PO BID 90 days bupropion HCl XL (Wellbutrin XL) 300 mg PO QAM 90 days buspirone 10 mg (2 x 5 mg) PO BID PRN 90 days clonidine HCl 0.1 mg PO BEDTIME escitalopram oxalate 10 mg PO DAILY 90 days lorazepam 0.5 mg PO DAILY PRN losartan 50 mg PO BID 90 days quetiapine 100 mg PO BEDTIME 90 days Tobacco use date assessed: 04/16/25 Dental Screening Dental Screen Date: 11/14/24 Did you have a dental visit in the last 12 months?: No Did you have a dental problem in the last 6 months where you did not have access to dental care?: No Was dental information given to patient?: Patient has dentist HPI 3m follow up HPI Details f/u apt - The patient is a 49-year-old female presenting with hypertension. - Initial hypertension presented with a first reading of 162/90 mmHg, accompanied by a secondary reading of 150/4 x 100 mmHg. - The patient reported issues with medication adherence, possibly leading to elevated blood pressure readings. - There is a noted history of prescription cost concerns, impacting medication adherence. - The patient has experienced a weight gain from 187 lbs in October to 195 lbs currently. - Blood tests were last completed in October; a subsequent test was missed in January. - There is an expressed concern about rising weight but no specific treatment or lifestyle modifications were discussed. Medical History: - Hypertension - Depression - Anxiety - Insomnia Medications: - Tylenol, dosage of 50 mg, taken as needed for pain. - Clonidine, 0.1 mg, taken for blood pressure control. - Losartan, 50 mg, taken for blood pressure control twice daily. - Bupropion (referred to as melbutrin ), taken for depression. - Buspirone, 10 mg, taken up to twice daily for anxiety. - Escitalopram (Lexapro), 10 mg, for anxiety. - Quetiapine, 10 mg, taken as a sleep aid. Social History:. - Reports financial concerns regarding the cost of multiple medications and issues with insurance not covering prescription costs adequately. Diagnostic Results: - Labs: October lab results showed a normal hemoglobin level, normal metabolic profile indicating intact kidney functions, normal liver enzymes, LDL level of 98, and TSH within normal limits. Problem List - Hypertension - Depression - Anxiety - Insomnia Patient Instructions - Ensure you take your hypertension medications daily to avoid high blood pressure episodes. - Consider switching your prescription pickups to [facility] for more affordable prices. - Ensure to set up and attend your blood test promptly. - Book your next appointment for July, and do not miss it. - Engage in regular physical activity such as walking to aid in weight management. - Attend all upcoming appointments, keeping a regular follow-up routine. Review of Systems - General: No fever no chills - Neurological: No headaches no dizziness - Ear nose throat: No sore throat no hearing difficulty no ear pain - Cardiovascular: No syncope, no chest pain, no palpitations - Gastrointestinal: No nausea vomiting or diarrhea - Endocrine: No polyuria polydipsia no heat intolerance - Genitourinary: No dysuria , no blood in urine Physical Exam - General: No acute distress - HEENT: No acute findings - Neck: Supple - Respiratory system: Able to talk in full sentences, no audible wheeze - Cardiovascular: S1-S2 regular in rate and rhythm - Gastrointestinal: No pain - Extremities: No new findings - EMERGENCY MANAGEMENT COORDINATOR: Alert awake oriented x3 motor sensory intact - Skin: Normal turgor [facility] Medical History Change in bowel function Blood in urine IBS (irritable bowel syndrome) Herpes simplex antibody positive Difficulty sleeping Hypertension, essential Anxiety, generalized Depression, major, recurrent Surgical History History of tubal ligation Family History Father CAD (coronary artery disease) High cholesterol Mother HTN (hypertension) Depression Paternal Grandfather Cancer of prostate Other Mental health disorder Social History Household Members: Children Housing: Condominium Alcohol intake: current Alcohol intake frequency: a few times a month Patient Tobacco Use Status: Current everyday Tobacco user Tobacco use type: Cigarette Cigarettes Per Day: 3 e-Cigarette/Vaping Use: Never Used service: No Current occupational status: employed Current occupation: [employer] High Cognitive needs: No Hearing needs: No Vision needs: No Female Reproductive History Menstrual Age of Menarche: 10 Date of last menstrual period: 04/12/25 Questionnaire PHQ-9 Over the last 2 weeks, how often have you been bothered by any of the following problems? 23281 - PHQ-9 Billing: Patient declined-do not bill Source: Developed by Drs. Chance Gillespie, Neena Archer, Cuauhtemoc Brambila and colleagues, with an educational ozzie from [employer]. Thrive Questionnaire Date Thrive assessed: 04/16/25 I am a: Patient What is your living situation today?: I have a steady place to live Within the past 12 months, did the food you bought not last and you didn't have the money to get more?: Never true Within the past 12 months, did you worry whether your food would run out before you got money to buy more?: Never true Do you have trouble paying for medicines?: No Do you have trouble getting transportation to medical appointments?: No Do you have trouble paying your heating and electricity bill?: No Do you have trouble taking care of your child, family member or friend?: No Do you have trouble with day-to-day activities such as bathing, preparing meals, shopping, managing finances, etc.?: No Are you currently unemployed and looking for a job?: No Are you interested in more education?: No Please select the resources that you would like help with: None THRIVE Score: 0 AUDIT C Alcohol Use Questionnaire (AUDIT-C) 1. How often do you have a drink containing alcohol?: Monthly or less 2. How many drinks containing alcohol do you have on a typical day when you are drinking?: 1 or 2 3. How often do you have six or more drinks on one occasion?: Never Total Score: 1 Score Reviewed/Action Taken: Yes MARIA DEL CARMEN-7 AMB Questionnaire MARIA DEL CARMEN-7 Date MARIA DEL CARMEN - 7 assessed: 11/14/24 Feeling nervous, anxious, or on edge: 1 = Several days Not being able to stop or control worryin = Several days Worrying too much about different things: 1 = Several days Trouble relaxin = Several days Being so restless that it is hard to sit still: 1 = Several days Becoming easily annoyed or irritable: 1 = Several days Feeling afraid as if something awful might happen: 2 = More than half the days Total MARIA DEL CARMEN-7 score (0-4 normal; 5-9 mild; 10-14 moderate; 15-21 severe): 8 Source: Developed by Drs. Chance Gillespie, Neena Archer, Cuauhtemoc Brambila and colleagues, with an educational ozzie from [employer]. MARIA DEL CARMEN-7 Assessment Billing MARIA DEL CARMEN-7 Assessment Tool: MARIA DEL CARMEN-7 Assessment 24808 Physical exam (Primary Care) Vital Signs: Last Vital Signs Temp 98.7 F 04/16/25 15:10 Pulse 77 04/16/25 15:10 BP 162/90 H 04/16/25 15:10 Pulse Ox 99 04/16/25 15:10 Oxygen Delivery Method Room Air 04/16/25 15:10 BMI result Body Mass Index 31.0 Tobacco/Smoking Status: Tobacco use Status Tobacco use date assessed 04/16/25 04/16/25 15:20 Patient Tobacco Use Status Current everyday Tobacco 04/16/25 15:20 Tobacco use type Cigarette 04/16/25 15:20 e-Cigarette/Vaping Use Never Used 04/16/25 15:20 Thrive Assessment: Date of Thrive Assessment Date Thrive assessed 04/16/25 04/16/25 15:20 Coding Level of Care Code Est Pt Level 4 (31361) Diagnoses Hypertension, essential I10 Anxiety, generalized F41.1 Recurrent major depressive disorder, in partial remission F33.41 Active/Remission status: in partial remission Difficulty sleeping G47.9 Irritable bowel syndrome with both constipation and diarrhea K58.2 Irritable bowel syndrome type: with both diarrhea and constipation Grade I hemorrhoids K64.0 Hemorrhoid type: first degree Additional Codes MARIA DEL CARMEN-7 Assessment Billing - MARIA DEL CARMEN-7 Assessment Tool: MARIA DEL CARMEN-7 Assessment 88663 ([id number]) Assessment & Plan Assessment & Plan (1) Hypertension, essential: Code(s): I10 - Essential (primary) hypertension Category: Medical (2) Anxiety, generalized: Code(s): F41.1 - Generalized anxiety disorder Category: Medical (3) Depression, major, recurrent: Code(s): F33.9 - Major depressive disorder, recurrent, unspecified Category: Medical Qualifiers: Active/Remission status: in partial remission Qualified Code(s): F33.41 - Major depressive disorder, recurrent, in partial remission (4) Difficulty sleeping: Code(s): G47.9 - Sleep disorder, unspecified Category: Medical (5) IBS (irritable bowel syndrome): Comment: FODMAP-and reduce anxiety Dicyclomine 10 mg may increase to t.i.d. Food diary Code(s): K58.9 - Irritable bowel syndrome, unspecified Category: Medical Qualifiers: Irritable bowel syndrome type: with both diarrhea and constipation Qualified Code(s): K58.2 - Mixed irritable bowel syndrome (6) Hemorrhoids: Code(s): K64.9 - Unspecified hemorrhoids Category: Medical Qualifiers: Hemorrhoid type: first degree Qualified Code(s): K64.0 - First degree hemorrhoids Plan f/u apt - The patient is a 49-year-old female presenting with hypertension. - Initial hypertension presented with a first reading of 162/90 mmHg, accompanied by a secondary reading of 150/4 x 100 mmHg. - The patient reported issues with medication adherence, possibly leading to elevated blood pressure readings. - There is a noted history of prescription cost concerns, impacting medication adherence. - The patient has experienced a weight gain from 187 lbs in October to 195 lbs currently. - Blood tests were last completed in October; a subsequent test was missed in January. - There is an expressed concern about rising weight but no specific treatment or lifestyle modifications were discussed. Medical History: - Hypertension - Depression - Anxiety - Insomnia Medications: - Tylenol, dosage of 50 mg, taken as needed for pain. - Clonidine, 0.1 mg, taken for blood pressure control. - Losartan, 50 mg, taken for blood pressure control twice daily. - Bupropion (referred to as melbutrin ), taken for depression. - Buspirone, 10 mg, taken up to twice daily for anxiety. - Escitalopram (Lexapro), 10 mg, for anxiety. - Quetiapine, 10 mg, taken as a sleep aid. Social History:. - Reports financial concerns regarding the cost of multiple medications and issues with insurance not covering prescription costs adequately. Diagnostic Results: - Labs: October lab results showed a normal hemoglobin level, normal metabolic profile indicating intact kidney functions, normal liver enzymes, LDL level of 98, and TSH within normal limits. Problem List - Hypertension - Depression - Anxiety - Insomnia Patient Instructions - Ensure you take your hypertension medications daily to avoid high blood pressure episodes. - Consider switching your prescription pickups to [facility] for more affordable prices. - Ensure to set up and attend your blood test promptly. - Book your next appointment for July, and do not miss it. - Engage in regular physical activity such as walking to aid in weight management. - Attend all upcoming appointments, keeping a regular follow-up routine. Orders: Orders Complete Blood Count Auto Diff Today F33.41 - Major depressive disorder, recurrent, in partial remission, F41.1 - Generalized anxiety disorder, G47.9 - Sleep disorder, unspecified, I10 - Essential (primary) hypertension, K58.2 - Mixed irritable bowel syndrome, K64.0 - First degree hemorrhoids Comprehensive Met. Panel Today F33.41 - Major depressive disorder, recurrent, in partial remission, F41.1 - Generalized anxiety disorder, G47.9 - Sleep disorder, unspecified, I10 - Essential (primary) hypertension, K58.2 - Mixed irritable bowel syndrome, K64.0 - First degree hemorrhoids Medications: Refilled atenolol 50 mg PO BID 180 tabs 1RF 90 days clonidine HCl 0.1 mg PO BEDTIME 90 tabs 0RF High blood pressure bupropion HCl XL (Wellbutrin XL) 300 mg PO QAM 90 tabs 1RF 90 days buspirone 10 mg (2 x 5 mg) PO BID PRN 180 tabs 0RF anxiety 90 days F41.1 - Generalized anxiety disorder quetiapine 100 mg PO BEDTIME 90 tabs 0RF 90 days F33.9 - Major depressive disorder, recurrent, unspecified escitalopram oxalate 10 mg PO DAILY 90 tabs 0RF 90 days losartan 50 mg PO BID 180 tabs 1RF 90 days I10 - Essential (primary) hypertension
[2025-04-16 15:28] VITALS: BP 154/100
--- OUTSIDE RECORDS SUMMARY | 2025-04-16 15:41 | XMS_ITS | Clinical Summary ---
Author Organization [facility] ity Address [address] [place] [id number] Care Team Providers Care Cab Starter Name Role Phone Unavailable Primary Care Provider Unavailabl e Social History Tobacco Use Types Packs/Day Years Used Date Smoking Tobacco: Never Assessed Comments Unknown Sex and Gender Information Value Date Recorded Sex Assigned at Not on file Legal Sex Female 1:56 PM EST Gender Identity Not on file Sexual Orientation Not on file Plan of Treatment Health Maintenance Due Date Last Done Comments Breast Cancer Screening 1975 DTaP,Tdap,and Td Vaccines (1 - Tdap) 1994 Hepatitis B Vaccines (1 of 3 - 19+ 3-dose series) 1994 Cervical Cancer Screening: P ap Smear 1996 COVID-19 Vaccine (2023-2 5 season) 2024 Influenza Vaccine (#1) 2025 HIB Vaccines Aged Out No longer eligi [...] patient's age to complete this topic Meningococcal B Vaccine Aged Out No l onger eligible based on patient's age to complete this topic Pneumococcal Vaccine: Pediat rics (0 to 5 Years) and At-Risk Patients (6 to 49 Years) Aged Out No longer eligible b ased on patient's age to complete this topic RSV Immunization Patients Un maricel 20 months Aged Out No longer eligible b ased on patient's age to complete this topic Varicella Vaccines Aged Out No longer eligible based on patient's age to complete this topic
== END 2025-04-16 15:41 | disposition home or self-care (01) ==
LOC: HO.HMCC 14:57
PROVIDERS: PCP Internal Medicine; Visit Provider Internal Medicine
DX: I10 Essential (primary) hypertension (principal); F41.1 Generalized anxiety disorder; F33.41 Major depressive disorder, recurrent, in partial remission; G47.9 Sleep disorder, unspecified; K58.2 Mixed irritable bowel syndrome; K64.0 First degree hemorrhoids

== ENCOUNTER → 2025-04-16 14:51 | Outpatient (BNVA) | payer OTHER, SELFPAY | PROVIDERS: PCP Internal Medicine; Visit Provider Internal Medicine | DX: I10 Essential (primary) hypertension (principal); F41.1 Generalized anxiety disorder; F33.41 Major depressive disorder, recurrent, in partial remission; G47.9 Sleep disorder, unspecified; K58.2 Mixed irritable bowel syndrome; K64.0 First degree hemorrhoids | CPT/HCPCS: 96127 ==

== ENCOUNTER 2025-07-23 14:47 | Outpatient (AMB) | payer OTHER, SELFPAY ==
--- NOTE | 2025-07-23 14:51 | A.OFFPC_ITS ---
Vital Signs 07/23/25 14:52 Height 5 ft 6 in Weight 196 lb BMI 31.6 BP 132/90 H Blood Pressure Location Lt brachial Position Sitting Pulse 63 Pulse Source Pulse Oximeter Pulse Oximetry (%) 100 Oxygen Delivery Method Room Air Intake Visit Reasons: 3m follow up Commercial Administrator Required: No Accompanied by: Self / Same As Patient Allergies Sulfa (Sulfonamide Antibiotics) (SULFA (SULFONAMIDE ANTIBIOTICS)) Allergy (Unknown, Verified 07/23/25 14:52) Anaphylaxis/hives Medication List - Last Reconciled 07/23/25 by Rox Novak MD atenolol 50 mg PO BID 90 days bupropion HCl XL (Wellbutrin XL) 300 mg PO QAM 90 days buspirone 10 mg (2 x 5 mg) PO BID PRN 90 days clonidine HCl 0.1 mg PO BEDTIME escitalopram oxalate 10 mg PO DAILY 90 days lorazepam 0.5 mg PO DAILY PRN losartan 50 mg PO BID 90 days quetiapine 100 mg PO BEDTIME 90 days Tobacco use date assessed: 04/16/25 Dental Screening Dental Screen Date: 11/14/24 HPI 3m follow up HPI Details History The patient is a 49-year-old female presenting with a follow-up for depression and gastrointestinal issues. Severe Depression: - History of severe depression managed w ith quetiapine 100 mg at bedtime. - Currently taking bupropion and escital opram for depression and anxiety, respectively. - Reports mood and depression as stable during the visit. - Has been on consistent medication adrianna men for depression since the last visit. Hypertension: - Diagnosed with hypertension, managed w ith atenolol 50 mg BID, clonidine 0.1 mg at bedtime, and losartan 50 mg. - Past blood pressure recorded at 154/10 0 in April and currently 132/89, indicating improvement. - Regular monitoring and medication adju stments have been part of the management plan. Gastrointestinal Symptoms: - Reports nausea, bloating, constipation , and diarrhea intermittently, suggestive of irritable bowel syndrome. - Symptoms include feeling nauseous with food intake, constant stomach discomfort, and difficulty with certain foods. - States symptoms are variable and impac t daily activities, requiring careful dietary assessment and management. Medical History: - Severe depression. - Hypertension. - Gastrointestinal symptoms suggestive o f irritable bowel syndrome. - Anxiety disorder. Medications: - Quetiapine 100 mg at bedtime for sever e depression. - Bupropion for depression; dosage not s pecified. - Escitalopram 10 mg for anxiety. - Atenolol 50 mg BID for hypertension. - Clonidine 0.1 mg at bedtime for hypert ension. - Losartan 50 mg for hypertension. Social History: - Reports of coffee consumption every mo rning. - Attempts weight management with BMI at 31.6 and acknowledges need for dietary changes. - Experiences symptoms exacerbated by ce rtain foods, potentially impacting social interactions and mobility. Problem List - Severe Depression - Hypertension - Gastrointestinal Symptoms Suggestive o f Irritable Bowel Syndrome - Anxiety Disorder Diagnostic results - CBC done in October of this year. - Metabolic profile done in October his year. Plan - Follow-up visit to monitor depression medication; refill of quetiapine was requested and approved. - Monitor hypertension medication adhere nce and response; refilled atenolol and clonidine. - Address gastrointestinal symptoms with dietary modifications; advised int ermittent fasting and avoidance of trigger foods. - Encouraged blood test completion for a ccurate monitoring. - Discussed and noted clear benefits of medication adherence and lifestyle changes, stressing the role of diet in managing IBS. - Created and provided a written medicat ion list to aid in proper adherence and to minimize medication errors. Follow-up 3 months Review of Systems General: No fever no chills neurological: No headaches no dizziness ear nose throat: No sore throat no hearing difficulty no ear pain cardiovascular: No syncope, no chest pain, no palpitations endocrine: No polyuria polydipsia no heat intolerance genitourinary: No dysuria skin: No new complaints Physical Exam general: No acute distress HEENT: No acute findings neck: Supple respiratory system: Able to talk in full sentences, no audible wheeze no stridor cardiovascular: S1-S2 RRR gastrointestinal: Generalized discomfort no guarding no rebound extremities: No new findings [employer]: Alert awake oriented x3 motor sensory intact skin: Normal turgor PFSH Medical History Change in bowel function Blood in urine IBS (irritable bowel syndrome) Herpes simplex antibody positive Difficulty sleeping Hypertension, essential Anxiety, generalized Depression, major, recurrent Surgical History History of tubal ligation Family History Father CAD (coronary artery disease) High cholesterol Mother HTN (hypertension) Depression Paternal Grandfather Cancer of prostate Other Mental health disorder Social History Household Members: Children Housing: Condominium Alcohol intake: current Alcohol intake frequency: a few times a month Patient Tobacco Use Status: Current everyday Tobacco user Tobacco use type: Cigarette Cigarettes Per Day: 3 e-Cigarette/Vaping Use: Never Used service: No Current occupational status: employed Current occupation: [employer] High Cognitive needs: No Hearing needs: No Vision needs: No Female Reproductive History Menstrual Age of Menarche: 10 Questionnaire Thrive Questionnaire Date Thrive assessed: 10/31/24 I am a: Patient What is your living situation today?: I have a steady place to live Within the past 12 months, did the food you bought not last and you didn't have the money to get more?: Never true Within the past 12 months, did you worry whether your food would run out before you got money to buy more?: Never true Do you have trouble paying for medicines?: No Do you have trouble getting transportation to medical appointments?: No Do you have trouble paying your heating and electricity bill?: No Do you have trouble taking care of your child, family member or friend?: No Do you have trouble with day-to-day activities such as bathing, preparing meals, shopping, managing finances, etc.?: No Are you currently unemployed and looking for a job?: No Are you interested in more education?: No Please select the resources that you would like help with: None THRIVE Score: 0 MARIA DEL CARMEN-7 AMB Questionnaire MARIA DEL CARMEN-7 Date MARIA DEL CARMEN - 7 assessed: 11/14/24 Source: Developed by Drs. Chance Gillespie, Neena Archer, Cuauhtemoc hernandez, with an educational ozzie from [employer]. Physical exam (Primary Care) Vital Signs: Last Vital Signs Pulse 63 07/23/25 14:52 BP 132/90 H 07/23/25 14:52 Pulse Ox 100 07/23/25 14:52 Oxygen Delivery Method Room Air 07/23/25 14:52 BMI result Body Mass Index 31.6 Tobacco/Smoking Status: Tobacco use Status Tobacco use date assessed 04/16/25 07/23/25 14:56 Patient Tobacco Use Status Current everyday Tobacco 07/23/25 14:56 Tobacco use type Cigarette 07/23/25 14:56 e-Cigarette/Vaping Use Never Used 07/23/25 14:56 Thrive Assessment: Date of Thrive Assessment Date Thrive assessed 10/31/24 07/23/25 14:56 Coding Level of Care Code Est Pt Level 4 (15562) Diagnoses Hypertension, essential I10 Anxiety, generalized F41.1 Recurrent major depressive disorder, in partial remission F33.41 Active/Remission status: in partial remission Difficulty sleeping G47.9 Irritable bowel syndrome with both constipation and diarrhea K58.2 Irritable bowel syndrome type: with both diarrhea and constipation Assessment & Plan Assessment & Plan (1) Hypertension, essential: Code(s): I10 - Essential (primary) hypertension Category: Medical (2) Anxiety, generalized: Code(s): F41.1 - Generalized anxiety disorder Category: Medical (3) Depression, major, recurrent: Code(s): F33.9 - Major depressive disorder, recurrent, unspecified Category: Medical Qualifiers: Active/Remission status: in partial remission Qualified Code(s): F33.41 - Major depressive disorder, recurrent, in partial remission (4) Difficulty sleeping: Code(s): G47.9 - Sleep disorder, unspecified Category: Medical (5) IBS (irritable bowel syndrome): Comment: FODMAP-and reduce anxiety Dicyclomine 10 mg may increase to t.i.d. Food diary Code(s): K58.9 - Irritable bowel syndrome, unspecified Category: Medical Qualifiers: Irritable bowel syndrome type: with both diarrhea and constipation Qualified Code(s): K58.2 - Mixed irritable bowel syndrome Plan History The patient is a 49-year-old female presenting with a follow-up for depression and gastrointestinal issues. Severe Depression: - History of severe depression managed with quetiapine 100 mg at bedtime. - Currently taking bupropion and escitalopram for depression and anxiety, respectively. - Reports mood and depression as stable during the visit. - Has been on consistent medication regimen for depression since the last visit. Hypertension: - Diagnosed with hypertension, managed with atenolol 50 mg BID, clonidine 0.1 mg at bedtime, and losartan 50 mg. - Past blood pressure recorded at 154/100 in April and currently 132/89, indicating improvement. - Regular monitoring and medication adjustments have been part of the management plan. Gastrointestinal Symptoms: - Reports nausea, bloating, constipation, and diarrhea intermittently, suggestive of irritable bowel syndrome. - Symptoms include feeling nauseous with food intake, constant stomach discomfort, and difficulty with certain foods. - States symptoms are variable and impact daily activities, requiring careful dietary assessment and management. Medical History: - Severe depression. - Hypertension. - Gastrointestinal symptoms suggestive of irritable bowel syndrome. - Anxiety disorder. Medications: - Quetiapine 100 mg at bedtime for severe depression. - Bupropion for depression; dosage not specified. - Escitalopram 10 mg for anxiety. - Atenolol 50 mg BID for hypertension. - Clonidine 0.1 mg at bedtime for hypertension. - Losartan 50 mg for hypertension. Social History: - Reports of coffee consumption every morning. - Attempts weight management with BMI at 31.6 and acknowledges need for dietary changes. - Experiences symptoms exacerbated by certain foods, potentially impacting social interactions and mobility. Problem List - Severe Depression - Hypertension - Gastrointestinal Symptoms Suggestive of Irritable Bowel Syndrome - Anxiety Disorder Diagnostic results - CBC done in October of this year. - Metabolic profile done in October of this year. Plan - Follow-up visit to monitor depression medication; refill of quetiapine was requested and approved. - Monitor hypertension medication adherence and response; refilled atenolol and clonidine. - Address gastrointestinal symptoms with dietary modifications; advised intermittent fasting and avoidance of trigger foods. - Encouraged blood test completion for accurate monitoring. - Discussed and noted clear benefits of medication adherence and lifestyle changes, stressing the role of diet in managing IBS. - Created and provided a written medication list to aid in proper adherence and to minimize medication errors. Follow-up 3 months Medications: Refilled atenolol 50 mg PO BID 180 tabs 1RF 90 days escitalopram oxalate 10 mg PO DAILY 90 tabs 0RF 90 days clonidine HCl 0.1 mg PO BEDTIME 90 tabs 0RF High blood pressure buspirone 10 mg (2 x 5 mg) PO BID PRN 180 tabs 0RF anxiety 90 days F41.1 - Generalized anxiety disorder quetiapine 100 mg PO BEDTIME 90 tabs 0RF 90 days F33.9 - Major depressive disorder, recurrent, unspecified Discontinued lorazepam Discontinued Reason: Doctor's Order 0.5 mg PO DAILY PRN 30 tabs 0RF anxiety
[2025-07-23 14:52] VITALS: BP 132/90; PULSE 63; O2SAT 100; BMI 31.6
== END 2025-07-23 16:18 | disposition home or self-care (01) ==
LOC: HO.HMCC 14:48
PROVIDERS: PCP Internal Medicine; Visit Provider Internal Medicine
DX: I10 Essential (primary) hypertension (principal); F41.1 Generalized anxiety disorder; F33.41 Major depressive disorder, recurrent, in partial remission; G47.9 Sleep disorder, unspecified; K58.2 Mixed irritable bowel syndrome